=== PATIENT | female | born 1940 | race Caucasian/White ===

== ENCOUNTER 2016-10-21 12:53 | Outpatient (CLI) | payer MEDICARE, BC | END 2016-10-21 12:54 | disposition home or self-care (01) | DX: R53.83 Other fatigue (principal) ==

== ENCOUNTER 2016-10-21 13:24 | Outpatient (CLI) | payer MEDICARE, BC | END 2016-10-21 13:25 | disposition home or self-care (01) | DX: R06.02 Shortness of breath (principal); R53.83 Other fatigue ==

== ENCOUNTER 2016-11-01 14:22 | Outpatient (CLI) | payer MEDICARE, BC ==
[~2016-11-01 14:22] MED LIST: ALBUTEROL NEB 2.5 MG/3 ML INH ONE
== END 2016-11-01 14:23 | disposition home or self-care (01) ==
LOC: RT 14:22
PROVIDERS: ATTEND Physician Assistant Medical
DX: R06.02 Shortness of breath (principal)

== ENCOUNTER 2017-10-26 08:48 | Outpatient (CLI) | payer MEDICARE, BC ==
[2017-10-26] MEDS ORDERED: REGADENOSON 0.4 MG/5 ML SYRINGE IVP ONE ×2 (10:06→12:43)
[2017-10-26 12:26] VITALS: BP 158/72
--- NOTE | 2017-10-26 12:32 | CARDIAC PROCEDURE NOTE ---
DATE OF SERVICE: 10/26/2017 Provider: LISA Cosme PRIMARY CARE PHYSICIAN: Dr. Duffy PROCEDURE: Pharmacologic cardiac stress test. PROCEDURE DIAGNOSIS: Atypical chest pain and nonspecific ST and T-wave changes. CARDIAC RISK FACTORS: Include age and elevated blood pressure. PREVIOUS CARDIAC PROCEDURES: MPS. CLINICAL HISTORY: A 77-year-old female without known coronary artery disease. No current symptoms. INITIAL RESTING VITAL SIGNS: BP 158/72, heart rate 65, height 62 inches, weight 142 pounds, BMI 25.9. PROCEDURE AND FINDINGS: Patient identity and date verified. Consent signed. Pharmaceutical check. Pharmacologic stress testing was performed with Lexiscan at a dose of 0.4 mg over 10 seconds. The heart rate increased to 94 beats per minute from the infusion. Blood pressure response was normal during the stress procedure. The patient developed severe pain at the injection site with the injection and with saline. There was no sign of extravasation. The resting ECG demonstrated normal sinus rhythm with nonspecific ST changes and inverted T waves in leads II, III, aVF, V5, V6. Maximum ST segment depression with stress was more than 1 mm and downsloping. There was no ectopy. FINAL IMPRESSIONS 1. Good quality test. 2. Positive electrocardiogram for ischemia in the setting of vasodilator stress. 3. Nondiagnostic stress test for angina. 4. Await myocardial perfusion report. TD: 10/26/2017 11:42 MTDD
--- NOTE | 2017-10-27 08:13 | Nuclear Medicine Report ---
EXAM: SINGLE-ISOTOPE PHARMACOLOGICAL STRESS TEST WITH REGADENOSON. SINGLE-ISOTOPE AND ONE-DAY REST/STRESS M YOCARDIAL PERFUSION SCANS WITH TOMOGRAPHIC IMAGING, QUANTITATIVE ANALYSIS, WALL MOTION ANALYSIS AND C ALCULATION OF EJECTION FRACTION. EXAM DATE: 10/26/2017 12:45 PM. CLINICAL HISTORY: Chest pain. COMPARISON: None. TECHNIQUE: After the intravenous administration of 9.2 mCi of Tc-99m sestamibi, a rest myocardial perfusion scan was done with tomography. Motion correction was applied when appropriate. After an appropriate delay, pharmacological stress was performed with the infusion of 0.4 mg regadeno son per protocol. According to protocol, 40.8 mCi of Tc-99m sestamibi was injected for stress myocard ial perfusion scan. Motion correction was applied when appropriate. Gated tomographic images were obtained for wall motion analysis and computation of left ventricular e jection fraction. FINDINGS: Images show a small, mild defect in the distal anterior wall which appears relatively fixed between rest and stress images. No other convincing fixed or reversible perfusion defects. Wall motion analysis demonstrates no focal motion abnormality. The left ventricular end-diastolic volume is 56 cc. The left ventricular end-systolic volume is 14 cc . The left ventricular ejection fraction is calculated to be 75%. IMPRESSION: 1. Small, mild, fixed defect in the distal anterior wall. No other convincing fixed or reversible per fusion defects. 2. Left ventricular ejection fraction of 75%. 3. Normal segmental and global wall motion. 4. Normal left ventricular cavity size, no change with stress. [facility] Referring Provider Line: [phone] SITE ID: [id number]
== END 2017-10-26 08:49 | disposition home or self-care (01) ==
LOC: DI 08:48
PROVIDERS: ATTEND Family Medicine
DX: R07.89 Other chest pain (principal)
CPT/HCPCS: 78452; 93017; A9500; J2785; 93016; 93018

== ENCOUNTER 2018-03-13 08:46 | Outpatient (CLI) | payer MEDICARE, BC ==
--- NOTE | 2018-03-14 16:41 | Mammography Report ---
Reason: LT BREAST PAIN Procedure Date: 03/13/2018 Accession Number: [id number] / [id number] Procedure: PAULA - Diagnostic Dig Bilat CPT Code: FULL RESULT: EXAM: Diagnostic Dig Bilat DATE: 03/13/2018 10:00 AM CLINICAL HISTORY: 77-year-old female presents with left breast pain in the upper outer quadrant that has been present for 2 months. TECHNIQUE: Bilateral CC and MLO views were obtained. COMPARISON: 05/26/2016, 12/09/2009. FINDINGS: The breasts demonstrate heterogeneously dense fibroglandular parenchyma bilaterally. Coarse typically benign calcifications are seen bilaterally. No suspicious microcalcifications, asymmetries or masses are identified. IMPRESSION: Benign findings RECOMMENDATION: Recommend routine annual Screening mammography unless otherwise clinically indicated. BIRADS CATEGORY 2: Benign findings STANDARD QUALIFYING STATEMENTS: 1. This examination was not reviewed with the aid of Computer-Aided Detection (CAD). 2. A negative or benign imaging report should not delay biopsy if clinically suspicious findings are present. Consider surgical consultation if warrented. More than 5% of cancers are not identified by imaging. 3. Dense breasts may obscure an underlying neoplasm.
== END 2018-03-13 08:47 | disposition home or self-care (01) ==
LOC: DI 08:46
PROVIDERS: ATTEND Physician Assistant
DX: N64.4 Mastodynia (principal)
CPT/HCPCS: 77066

== ENCOUNTER 2018-10-01 08:22 | Outpatient (CLI) | payer MEDICARE, BC ==
[2018-10-01 14:24] LABS: BASOPHILS # (AUTO) 0.1 10^3/uL (0.0-0.1); BASOPHILS % (AUTO) 1.6 %; EOSINOPHILS # (AUTO) 0.3 10^3/uL (0.0-0.7); EOSINOPHILS % (AUTO) 6.1 %; HGB - HEMOGLOBIN 14.1 g/dL (12.0-16.0); LYMPHOCYTES # (AUTO) 1.3 10^3/uL (1.5-3.5); LYMPHOCYTES % (AUTO) 24.3 %; MEAN CORPUSCULAR HGB CONC 33.5 g/dL (32.0-36.0); MEAN CORPUSCULAR VOLUME 95.6 fL (81.0-99.0); MONOCYTES # (AUTO) 0.6 10^3/uL (0.0-1.0); MONOCYTES % (AUTO) 11.3 %; NEUTROPHILS % (AUTO) 56.7 %; PLT - PLATELET COUNT 281 10^3/uL (130-450); RED CELL DISTRIBUTION WIDTH 13.1 % (12.0-15.0); WHITE BLOOD COUNT 5.3 x10^3/uL (4.8-10.8)
[2018-10-01 14:57] LABS: ALBUMIN 4.1 g/dL (3.2-5.5); ALBUMIN/GLOBULIN RATIO 1.3 (1.0-2.2); ALKALINE PHOSPHATASE 63 IU/L (42-121); ALT ALANINE AMINOTRANSFERASE 17 IU/L (10-60); AST ASPARTATE AMINOTRANSFERASE 21 IU/L (10-42); BILIRUBIN,TOTAL 0.7 mg/dL (0.2-1.0); BUN - BLOOD UREA NITROGEN 15 mg/dL (6-20); CALCIUM 9.1 mg/dL (8.5-10.3); CARBON DIOXIDE - CO2 29 mmol/L (21-32); CHLORIDE 104 mmol/L (101-111); CHOLESTEROL 219 mg/dL; CREATININE 0.6 mg/dL (0.4-1.0); GFR - MDRD 97 (>89); GLUCOSE 86 mg/dL (70-100); HDL CHOLESTEROL 72 mg/dL; LDL CHOLESTEROL,CALCULATED 133 mg/dL; LDL/HDL RATIO 1.8 (<4.4); SODIUM 139 mmol/L (135-145); TOTAL PROTEIN 7.2 g/dL (6.7-8.2); VLDL CHOLESTEROL 14 mg/dL
== END 2018-10-01 08:23 | disposition home or self-care (01) ==
LOC: LAB.WCP 08:22
PROVIDERS: ATTEND Physician Assistant
DX: Z00.00 Encounter for general adult medical examination without abnormal findings (principal); R07.89 Other chest pain; R53.83 Other fatigue
CPT/HCPCS: 36415; 80053; 80061; 83721; 84443; 85025

== ENCOUNTER 2019-01-22 09:01 | Outpatient (CLI) | payer MEDICARE, BC ==
--- NOTE | 2019-01-23 16:37 | Ultrasound Report ---
Reason: DIZZINESS/VERTIGO Procedure Date: 01/22/2019 Accession Number: [id number] / [id number] Procedure: US - Carotid Doppler Complete CPT Code: FULL RESULT: EXAM: BILATERAL CAROTID AND VERTEBRAL ARTERY DUPLEX DOPPLER ULTRASOUND: EXAM DATE: 01/22/2019 09:55 AM CLINICAL HISTORY: Dizziness. Vertigo. COMPARISON: None. TECHNIQUE: Grayscale imaging, color Doppler, and duplex spectral Doppler were used to evaluate the carotid and vertebral arteries bilaterally. Static images were obtained. FINDINGS: Small amount of plaque is identified in carotid arteries bilaterally. Normal antegrade flow is present in bilateral vertebral arteries. Incidental 2.0 x 1.0 x 1.2 cm left thyroid nodule with vascularity noted. VELOCITIES (cm/sec): RIGHT: CCA mid: PSV 96 cm/sec CCA dist: PSV 78 cm/sec ICA prox: PSV 94 cm/sec, EDV 23 cm/sec ICA mid: PSV 86 cm/sec, EDV 23 cm/sec ICA dist: PSV 77 cm/sec, EDV 21 cm/sec ECA: PSV 116 cm/sec Vert: PSV 58 cm/sec ICA/CCA: 0.97 LEFT: CCA mid: PSV 91 cm/sec CCA dist: PSV 70 cm/sec ICA prox: PSV 71 cm/sec, EDV 15 cm/sec ICA mid: PSV 78 cm/sec, EDV 22 cm/sec ICA dist: PSV 72 cm/sec, EDV 4 cm/sec ECA: PSV 95 cm/sec Vert: PSV 73 cm/sec ICA/CCA: 0.82 ICA diameter stenosis: Right: <50% by velocity and <70% by NASCET criteria. Left: <50% by velocity and <70% by NASCET criteria. IMPRESSION: 1. Mild bilateral carotid artery plaquing. 2. In the right carotid artery there are no elevated carotid artery velocities to suggest hemodynamically significant stenosis. 3. In the left carotid artery there are no elevated carotid artery velocities to suggest hemodynamically significant stenosis. 4. Normal antegrade flow is present in bilateral vertebral arteries. 5. Left thyroid nodule. Consider FNA due to 2 cm size criteria. General Recommendations: Stenosis =50% ICA - Follow-up ultrasound 6-12 months Stenosis <50% ICA - High Risk Patient with plaque - Follow-up ultrasound 1-2 years Normal Study but High Risk Patient - Follow-up ultrasound 3-5 years Management recommendations and diagnostic criteria are based on current IAC endorsed standards in Carotid Artery Stenosis: Grayscale and Doppler Ultrasound Diagnosis. Validated velocity measurements with angiographic measurements and velocity criteria are extrapolated from diameter data as defined by the Society of Radiologists in Ultrasound Consensus Conference Radiology 2003; 229;340-346. [facility]
== END 2019-01-22 09:02 | disposition home or self-care (01) ==
LOC: DI 09:01
PROVIDERS: ATTEND Family Medicine
DX: R42 Dizziness and giddiness (principal); E04.1 Nontoxic single thyroid nodule
CPT/HCPCS: 93880

== ENCOUNTER 2019-01-25 11:09 | Outpatient (CLI) | payer MEDICARE, BC ==
--- NOTE | 2019-01-27 23:13 | CT Report ---
Reason: DIZZINESS/VERTIGO Procedure Date: 01/25/2019 Accession Number: [id number] / [id number] Procedure: CT - HEAD WO CPT Code: FULL RESULT: EXAM: CT HEAD EXAM DATE: 01/25/2019 11:24 AM. CLINICAL HISTORY: DIZZINESS/VERTIGO. COMPARISON: None. TECHNIQUE: Multiaxial CT images were obtained from the foramen magnum to the vertex. Reformats: Sagittal and coronal. IV contrast: None. In accordance with CT protocol optimization, one or more of the following dose reduction techniques were utilized for this exam: automated exposure control, adjustment of mA and/or KV based on patient size, or use of iterative reconstructive technique. FINDINGS: PARENCHYMA: No acute hemorrhage, transcortical infarction or mass. Periventricular and white matter hypointensities are nonspecific but most consistent with chronic microvascular ischemic changes. EXTRA-AXIAL SPACES: No extra-axial fluid collections. No midline shift. VENTRICLES/SULCI: Enlargement of the lateral and third ventricles with prominence of the cortical sulci consistent with age-appropriate cerebral volume loss. VASCULAR STRUCTURES: Arterial calcifications consistent with atherosclerosis. SINUSES: The visible paranasal sinuses and mastoid air cells are unremarkable. ORBITS: Status post bilateral cataract surgery. BONES: No displaced acute calvarial fracture. OTHER: None. IMPRESSION: 1. No acute intracranial findings. 2. Cerebral atrophy and chronic microvascular ischemic changes. [facility]
== END 2019-01-25 11:10 | disposition home or self-care (01) ==
LOC: DI 11:09
PROVIDERS: ATTEND Family Medicine
DX: R42 Dizziness and giddiness (principal); G31.9 Degenerative disease of nervous system, unspecified
CPT/HCPCS: 70450

== ENCOUNTER 2019-02-05 13:26 | Outpatient (CLI) | payer MEDICARE, BC ==
--- NOTE | 2019-02-06 04:41 | XRAY Report ---
Reason: LEFT 5TH FINGER PAIN Procedure Date: 02/05/2019 Accession Number: [id number] / [id number] Procedure: WCP - Finger(s) LT CPT Code: FULL RESULT: EXAM: LEFT FIFTH DIGIT RADIOGRAPHY EXAM DATE: 02/05/2019 01:26 PM. CLINICAL HISTORY: LEFT 5TH FINGER PAIN. COMPARISON: None. TECHNIQUE: 3 views. FINDINGS: Bones: Osteopenia. Mild deformity at the base of the proximal phalanx consistent with fracture of uncertain age. No other acute fracture seen. Joints: No dislocation seen. Degenerative joint disease in the interphalangeal joints. Soft Tissues: Soft tissue swelling. IMPRESSION: 1. Fracture of uncertain age at the base of the proximal phalanx. 2. Osteopenia and degenerative changes. [facility]
== END 2019-02-05 23:59 | disposition home or self-care (01) ==
LOC: DI.WCP 13:26
PROVIDERS: ATTEND Physician Assistant
DX: S62.617A Displaced fracture of proximal phalanx of left little finger, initial encounter for closed fracture (principal); M85.842 Other specified disorders of bone density and structure, left hand; M19.042 Primary osteoarthritis, left hand
CPT/HCPCS: 73140

== ENCOUNTER 2019-02-15 13:01 | Outpatient (CLI) | payer MEDICARE, BC ==
--- NOTE | 2019-02-18 09:34 | Ultrasound Report ---
Reason: THYROID NODULE, LEFT Procedure Date: 02/15/2019 Accession Number: [id number] / [id number] Procedure: US - Head or Neck Soft Tissue CPT Code: FULL RESULT: EXAM: THYROID ULTRASOUND EXAM DATE: 02/15/2019 01:59 PM. CLINICAL HISTORY: THYROID NODULE, LEFT seen on carotid ultrasound. For follow-up. COMPARISON: CAROTID DOPPLER COMPLETE 01/22/2019 9:09 AM. TECHNIQUE: Real time sonographic imaging of the thyroid was performed by the barn hand. Multiple pharmaceutical specialty representative static images were saved for review. FINDINGS: THYROID GLAND: Right Lobe: 4.4 x 1 x 1.3 cm, volume 2.7 cc. Normal background echotexture. Right Lobe Nodules: Superior pole 0.4 cm nodule with hypoechoic periphery and isoechoic center with peripheral vascularity. Superior medial hypoechoic 0.4 cm well-circumscribed nodule with peripheral vascularity. Left Lobe: 4.1 x 1.7 1.8 cm, volume 5.5 cc. Normal background echotexture. Left Lobe Nodules: 0.5 cm superior pole isoechoic nodule with vascularity. 2.1 x 1.2 x 1.4 cm heterogeneous vascular mid to lower pole nodule. Isthmus: 0.3 cm AP. Isthmic Nodules: None. LYMPH NODES: No pathologic adenopathy demonstrated in the central or lateral compartment. Right level 5 lymph node and left level 3 lymph nodes, maximum dimension 0.8 cm. OTHER: None. IMPRESSION: Dominant mid to left lower pole 2.1 x 1.2 x 1.4 cm heterogeneous vascular nodule for which FNA is suggested based on size criteria. Management recommendations are based on 2015 [place] [employer] Management Guidelines for Adult Patients with Thyroid Nodules and Differentiated Thyroid Cancer. [facility]
== END 2019-02-15 13:02 | disposition home or self-care (01) ==
LOC: DI 13:01
PROVIDERS: ATTEND Physician Assistant
DX: E04.2 Nontoxic multinodular goiter (principal)
CPT/HCPCS: 76536

== ENCOUNTER 2019-03-04 08:21 | Outpatient (CLI) | payer MEDICARE, BC ==
[2019-03-04] MEDS ORDERED: BUFFERED LIDOCAINE 10 ML SYRINGE ONE (08:23)
--- NOTE | 2019-03-04 15:01 | Ultrasound Report ---
Reason: LT THYROID NODULE Procedure Date: 03/04/2019 Accession Number: [id number] / [id number] Procedure: US - FNA Bx w/US Gnd les CPT Code: 64928 FULL RESULT: EXAM: THYROID FINE NEEDLE ASPIRATION EXAM DATE: 03/04/2019 09:45 AM. CLINICAL HISTORY: Left thyroid nodule. COMPARISON: None. TECHNIQUE: The risks, benefits, and alternatives of the procedure were discussed with the patient. All questions were answered. Written and verbal consent were obtained. A site was marked over the supine in question under live sonographic evaluation, then subsequently prepped and draped in a sterile manner. Local anesthesia was performed with 1% lidocaine. A total of 4 22 gauge fine-needle aspirates/passes were performed through the left lower pole dominant thyroid nodule in question, then passed to the director of pediatric rehabilitation for preparation. Estimated blood loss was 0 mL. Sonographic images demonstrate needle placement within the left lower pole dominant thyroid nodule in question. FINDINGS IMPRESSION: Left lower pole thyroid nodule FNA. [facility]
[2019-03-04] MEDS ORDERED: BUFFERED LIDOCAINE 10 ML SYRINGE IU ONE (15:52)
== END 2019-03-04 08:22 | disposition home or self-care (01) ==
LOC: DI 08:21
PROVIDERS: ATTEND Physician Assistant
DX: E04.1 Nontoxic single thyroid nodule (principal)
CPT/HCPCS: 10005

== ENCOUNTER 2019-07-29 12:32 | Outpatient (CLI) | payer MEDICARE, BC | END 2019-07-29 12:33 | disposition critical access hospital (66) | LOC: EMS 12:32 | PROVIDERS: ATTEND Surgery | DX: R07.9 Chest pain, unspecified (principal); R42 Dizziness and giddiness | CPT/HCPCS: A0425; A0427 ==

== ENCOUNTER 2019-07-29 12:49 | Emergency (ER) | payer MEDICARE, BC ==
--- NOTE | 2019-07-29 13:32 | XRAY Report ---
Reason: Chest Pain Procedure Date: 07/29/2019 Accession Number: [id number] / [id number] Procedure: XR - Chest 1 View X-Ray CPT Code: 51601 Final Report FULL RESULT: EXAM: CHEST RADIOGRAPHY EXAM DATE: 07/29/2019 01:19 PM. CLINICAL HISTORY: Chest pain. COMPARISON: Chest radiograph from 10/21/2016. TECHNIQUE: 1 view. FINDINGS: Lungs/Pleura: Mild diffuse interstitial prominence present. No pleural effusion or pneumothorax. Mediastinum: Cardiomediastinal silhouette is within normal limits. Pulmonary vasculature is mildly engorged. Other: There are partially visualized changes from left shoulder arthroplasty. IMPRESSION: Findings suggesting borderline CHF/fluid overload, new from the prior examination. [facility]
[2019-07-29 14:16] LABS: BASOPHILS # (AUTO) 0.1 10^3/uL (0.0-0.1); BASOPHILS % (AUTO) 0.9 %; EOSINOPHILS # (AUTO) 0.2 10^3/uL (0.0-0.7); EOSINOPHILS % (AUTO) 2.3 %; HGB - HEMOGLOBIN 13.3 g/dL (12.0-16.0); LYMPHOCYTES # (AUTO) 1.4 10^3/uL (1.5-3.5); LYMPHOCYTES % (AUTO) 20.2 %; MEAN CORPUSCULAR HEMOGLOBIN 31.6 pg (27.0-31.0); MEAN CORPUSCULAR HGB CONC 33.1 g/dL (32.0-36.0); MEAN CORPUSCULAR VOLUME 95.5 fL (81.0-99.0); MEAN PLATELET VOLUME 9.2 fL (7.9-10.8); MONOCYTES # (AUTO) 0.6 10^3/uL (0.0-1.0); MONOCYTES % (AUTO) 8.4 %; NEUTROPHILS # (AUTO) 4.7 10^3/uL (1.5-6.6); NEUTROPHILS % (AUTO) 67.8 %; PLT - PLATELET COUNT 244 10^3/uL (130-450); RED BLOOD COUNT 4.21 10^6/uL (4.20-5.40); RED CELL DISTRIBUTION WIDTH 13.7 % (12.0-15.0)
--- NOTE | 2019-07-29 14:26 | ED Physician Documentation ---
PD HPI CHEST PAIN - Stated complaint Stated Complaint: CP - Chief complaint Chief Complaint: Cardiac - History obtained from History obtained from: Patient - History of Present Illness Timing - onset: Today Timing - onset during: Rest Timing - duration: Minutes (1-2) Timing - details: Abrupt onset, Now resolved Pain level max: 8 Pain level now: 0 Quality: Tightness, Sharp Location: Substernal Radiation: No: Jaw, Neck, Back, Abdominal, Left upper extremity, Right upper extremity Improved by: Nothing Worsened by: Other (Nothing) Recently seen: Clinic - Additional information Additional information: 79-year-old female presents to the emergency department stating that she had all over body pain today. She states that this is not unusual for her. She states that she had chest pain along with the all over body pain. It lasted for a few minutes and is now resolved. Has had cardiac stents in the past. Does not feel similar to her prior ACS. She states that she lost her 2 years ago. Nothing made it better or worse. Symptoms are now resolved. She saw her doctor today who sent her here. Review of Systems Ten Systems: 10 systems reviewed and negative Constitutional: denies: Fever, Chills Ears: denies: Ear pain Nose: denies: Rhinorrhea / runny nose, Congestion Throat: denies: Sore throat Cardiac: denies: Palpitations Respiratory: denies: Cough GI: denies: Abdominal Pain, Vomiting, Diarrhea Skin: denies: Rash Musculoskeletal: denies: Neck pain, Back pain Neurologic: denies: Headache PD PAST MEDICAL HISTORY - Past Medical History Past Medical History: Yes Respiratory: COPD GI: GERD Musculoskeletal: Osteopenia - Past Surgical History General: Cholecystectomy Ortho: Hip replacement, 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 - Allergies Allergies/Adverse Reactions: Allergies Allergy/AdvReac Type Severity Reaction Status Date / Time No Known Drug Allergies Allergy Verified 07/29/19 12:53 - Social History Does the pt smoke?: No Smoking Status: Never smoker PD ED PE NORMAL - Vitals Vital signs reviewed: Yes - General General: Alert and oriented X 3, No acute distress, Well developed/nourished - HEENT HEENT: PERRL, Moist mucous membranes - Neck Neck: Supple, no meningeal sign - Cardiac Cardiac: RRR, Strong equal pulses - Respiratory Respiratory: No respiratory distress, Clear bilaterally - Abdomen Abdomen: Soft, Non tender, Non distended - Derm Derm: Warm and dry, No rash - Extremities Extremities: No edema - Neuro Neuro: Alert and oriented X 3, No motor deficit, No sensory deficit - Psych Psych: Normal mood, Normal affect Results - Vitals Vitals: Vital Signs - 24 hr 07/29/19 07/29/19 07/29/19 12:53 15:39 15:44 Temperature 36.5 C Heart Rate 65 58 L 62 Respiratory 16 20 14 Rate Blood Pressure 178/77 H 168/72 H 130/60 O2 Saturation 100 97 130 H Oxygen O2 Source Room air - EKG (time done) 1304 Rate: Rate (enter#) (68) Rhythm: NSR [place]: Normal Intervals: Normal [place] QRS: Normal Ischemia: Normal ST segments - Labs Labs: Laboratory Tests 07/29/19 07/29/19 07/29/19 14:09 14:09 14:09 WBC 7.0 RBC 4.21 Hgb 13.3 Hct 40.2 MCV 95.5 MCH 31.6 H MCHC 33.1 RDW 13.7 Plt Count 244 MPV 9.2 Neut # (Auto) 4.7 Lymph # (Auto) 1.4 L [place] # (Auto) 0.6 Eos # (Auto) 0.2 Baso # (Auto) 0.1 Absolute Nucleated RBC 0.00 Nucleated RBC % 0.0 Sodium 139 Potassium 3.6 Chloride 105 Carbon Dioxide 25 Anion Gap 9.0 BUN 17 Creatinine 0.7 Estimated GFR (MDRD) 81 L Glucose 94 Calcium 9.1 Total Bilirubin 0.7 AST 19 ALT 15 Alkaline Phosphatase 50 Troponin I High Sens 3.7 B-Natriuretic Peptide Total Protein 7.2 Albumin 4.2 Globulin 3.0 Albumin/Globulin Ratio 1.4 Lipase 28 07/29/19 07/29/19 14:09 16:14 WBC RBC Hgb Hct MCV MCH MCHC RDW Plt Count MPV Neut # (Auto) Lymph # (Auto) [place] # (Auto) Eos # (Auto) Baso # (Auto) Absolute Nucleated RBC Nucleated RBC % Sodium Potassium Chloride Carbon Dioxide Anion Gap BUN Creatinine Estimated GFR (MDRD) Glucose Calcium Total Bilirubin AST ALT Alkaline Phosphatase Troponin I High Sens 4.5 B-Natriuretic Peptide 34 Total Protein Albumin Globulin Albumin/Globulin Ratio Lipase - Rads (name of study) cxr Radiology: Prelim report reviewed, EMP read contemporaneously, See rad report (Findings suggesting borderline CHF/fluid overload, new from the prior exam) PD MEDICAL DECISION MAKING - ED course Complexity details: reviewed results, re-evaluated patient, considered differential, d/w patient, d/w family ED course: 79-year-old female presents to the emergency department all over body pain today. No significant lab abnormalities. Negative high-sensitivity troponin x2. BNP is normal. No hypoxia. No recurrence of symptoms. Unclear etiology. We will have her follow-up with her doctor for further care. Patient counseled regarding signs and symptoms for which I believe and urgent re-evaluation would be necessary. Patient with good understanding of and agreement to plan and is comfortable going home at this time This document was made in part using voice recognition software. While efforts are made to proofread this document, sound alike and grammatical errors may occur. Departure - Departure Disposition: 01 Home, Self Care Clinical Impression: Chest pain Qualifiers: Chest pain type: unspecified Qualified Code(s): R07.9 - Chest pain, unspecified Condition: Good Instructions: ED Chest Pain Atypical Unkn Cause Follow-Up: Bing Vazquez PA [Primary Care Provider] - Within 3 Days Comments: Your labs and x-ray do not show any acute abnormality today. Return if you worsen. Follow-up with your doctor for further care.
[2019-07-29 14:30] LABS: ALBUMIN 4.2 g/dL (3.2-5.5); ALBUMIN/GLOBULIN RATIO 1.4 (1.0-2.2); BILIRUBIN,TOTAL 0.7 mg/dL (0.2-1.0); CREATININE 0.7 mg/dL (0.4-1.0); TOTAL PROTEIN 7.2 g/dL (6.7-8.2)
[2019-07-29 14:55] LABS: CALCIUM 9.1 mg/dL (8.5-10.3)
[2019-07-29] MEDS ORDERED: diltiaZEM INJ 5 MG/ML VIAL IVP STA (15:04)
[2019-07-29 16:53] VITALS: BP 136/72
== END 2019-07-29 16:53 | disposition home or self-care (01) ==
LOC: EDUNIT# → ED 12:49
DX: R07.9 Chest pain, unspecified (principal)
CPT/HCPCS: 36415; 71045; 80053; 83690; 83880; 84484; 85025; 93005; 96374; 99284

== ENCOUNTER 2019-08-29 07:45 | Outpatient (CLI) | payer MEDICARE, BC ==
--- NOTE | 2019-08-29 10:24 | CARDIAC PROCEDURE NOTE ---
DATE OF SERVICE: 08/29/2019 Physician: Aicha Aguirre MD, [facility] INDICATION: Chest pain/atypical chest pain. CARDIAC RISK FACTORS 1. Advanced age. 2. Possibly untreated hypertension. 3. Remote ex-smoker. 4. Postmenopausal status. DESCRIPTION OF PROCEDURE: After signing informed consent, the patient underwent a Herman-protocol treadmill stress test with Echo imaging pre- and post-exercise. RESTING HEART RATE: 64. PEAK HEART RATE: 119 (85% predicted maximum heart rate for age). RESTING BLOOD PRESSURE: 155/75. PEAK BLOOD PRESSURE: 211/74. Patient exercised for 3 minutes and 3 seconds on a Herman-protocol treadmill stress test. She achieved a peak heart rate of 119 (85% PMHR) and 4.7 METS. The patient developed shortness of breath after 2 minutes of walking and requested to stop exercise at 3 minutes because of shortness of breath. She dropped her oxygen saturation from 95%, at rest on room air, to 89% at peak exercise on room air. She reported her perceived exertion at 13/20 on the Julienne scale. The patient reported no chest pain. RESTING EKG: Normal sinus rhythm, LVH with strain (downsloping ST segments with T-wave inversions in leads II, III, aVF, and V4 through V6). EKG AT PEAK: New horizontal ST depressions in leads V3 through V6, other changes are unchanged, except possible prolonged QT develops. SUMMARY 1. Abnormal resting EKG. 2. ST-segment depressions consistent with ischemia develop after treadmill exercise stress. 3. Uncontrolled blood pressure at rest, and excessive blood pressure at peak. 4. Oxygen saturation dropped to 89% at peak, and there was audible wheezing across the room as the patient recovered, this lasted for 2 minutes, then oxygen saturation recovered to 95% in 2 minutes. 5. This patient's cardiac risk based on all the above: Moderate-Severe. 6. Echo images reported separately. cc: Bing Vazquez PA-C TD: 08/29/2019 10:15 MTDD
== END 2019-08-29 07:46 | disposition home or self-care (01) ==
LOC: DI 07:45
PROVIDERS: ATTEND Physician Assistant
DX: R07.89 Other chest pain (principal); R94.31 Abnormal electrocardiogram [ECG] [EKG]; Z87.891 Personal history of nicotine dependence; Z78.0 Asymptomatic menopausal state
CPT/HCPCS: 93350

== ENCOUNTER 2020-01-18 08:25 | Emergency (ER) | payer MEDICARE, BC ==
[2020-01-18 08:58] LABS: BASOPHILS # (AUTO) 0.1 10^3/uL (0.0-0.1); BASOPHILS % (AUTO) 0.8 %; EOSINOPHILS # (AUTO) 0.3 10^3/uL (0.0-0.7); EOSINOPHILS % (AUTO) 4.6 %; LYMPHOCYTES # (AUTO) 1.4 10^3/uL (1.5-3.5); LYMPHOCYTES % (AUTO) 21.5 %; MEAN CORPUSCULAR HGB CONC 33.6 g/dL (32.0-36.0); MEAN CORPUSCULAR VOLUME 95.4 fL (81.0-99.0); MEAN PLATELET VOLUME 9.2 fL (7.9-10.8); MONOCYTES # (AUTO) 0.7 10^3/uL (0.0-1.0); MONOCYTES % (AUTO) 10.3 %; NEUTROPHILS % (AUTO) 62.5 %; PLT - PLATELET COUNT 266 10^3/uL (130-450); RED BLOOD COUNT 4.37 10^6/uL (4.20-5.40); RED CELL DISTRIBUTION WIDTH 13.3 % (12.0-15.0); WHITE BLOOD COUNT 6.3 x10^3/uL (4.8-10.8)
[2020-01-18 09:12] LABS: ALBUMIN 4.5 g/dL (3.2-5.5); ALBUMIN/GLOBULIN RATIO 1.5 (1.0-2.2); BILIRUBIN,TOTAL 0.6 mg/dL (0.2-1.0); CALCIUM 9.3 mg/dL (8.5-10.3); CREATININE 0.8 mg/dL (0.4-1.0); TOTAL PROTEIN 7.5 g/dL (6.7-8.2)
--- NOTE | 2020-01-18 09:15 | ED Physician Documentation ---
PD HPI CHEST PAIN - Stated complaint Stated Complaint: CHEST PX - Chief complaint Chief Complaint: Cardiac - History obtained from History obtained from: Patient - History of Present Illness Timing - onset: How many hours ago (8), Today Timing - duration: Hours (8) Timing - details: Other (She states that awoke her from sleep) Pain level max: 7 Pain level now: 1 Quality: Tightness, Other (Burning) Location: Substernal Radiation: Left upper extremity Improved by: Nothing Worsened by: Movement. No: Exertion, Inspiration, Eating, Palpation, Position Associated symptoms: Other (Anxious). No: Shortness of air, Diaphoresis, Nausea, Vomiting, Feeling faint / dizzy, General Weakness, Palpitations, Cough Similar symptoms before: Diagnosis (Chest pain, unknown cause) - Additional information Additional information: 79-year-old female presents to the emergency department stating that she awoke from sleep at approximately 1:30 in the morning with burning left-sided chest pain. She states that it radiated to the left arm. She states it has been constant since that time. It is finally starting to get better she states. She does not have any cardiac history. She states she had a normal cardiac stress test several years ago. No recent surgery. No recent travel. No recent fever. No cough. Worse with movement. No pleuritic chest pain. No calf swelling. Took aspirin prior to arrival. Patient states that she does have a history of GERD Review of Systems Ten Systems: 10 systems reviewed and negative Constitutional: denies: Fever, Chills, Myalgias Nose: denies: Rhinorrhea / runny nose, Congestion Throat: denies: Sore throat Cardiac: denies: Palpitations Respiratory: denies: Dyspnea, Cough, Hemoptysis, Wheezing GI: denies: Abdominal Pain, Nausea, Vomiting, Diarrhea Skin: denies: Rash Musculoskeletal: denies: Neck pain, Back pain Neurologic: denies: Headache PD PAST MEDICAL HISTORY - Past Medical History Past Medical History: Yes Cardiovascular: None Respiratory: COPD Neuro: None Endocrine/Autoimmune: None GI: GERD 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 : None HEENT: None Psych: None Musculoskeletal: Osteopenia Derm: None - Past Surgical History Past Surgical History: No General: Cholecystectomy Ortho: Hip replacement, 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 - Allergies Allergies/Adverse Reactions: Allergies Allergy/AdvReac Type Severity Reaction Status Date / Time No Known Drug Allergies Allergy Verified 07/29/19 12:53 - Social History Does the pt smoke?: No Smoking Status: Never smoker Does the pt have substance abuse?: No - Immunizations Immunizations are current?: Yes - POLST Patient has POLST: No Results - Vitals Vitals: Vital Signs - 24 hr 01/18/20 01/18/20 01/18/20 08:35 11:11 11:36 Temperature 36.5 C 36.6 C Heart Rate 59 L 60 76 Respiratory 24 13 18 Rate Blood Pressure 149/76 H 147/63 H 138/77 H O2 Saturation 99 96 97 Oxygen O2 Source Room air - EKG (time done) 0835 Rate: Rate (enter#) (55) Rhythm: NSR [place]: Normal Intervals: Normal [place] QRS: Normal Ischemia: T wave inversion (v5-6) Compare to prior EKG: Unchanged from prior EKG (07/29/19) - Labs Labs: Laboratory Tests 01/18/20 01/18/20 01/18/20 08:40 08:40 08:40 WBC 6.3 RBC 4.37 Hgb 14.0 Hct 41.7 MCV 95.4 MCH 32.0 H MCHC 33.6 RDW 13.3 Plt Count 266 MPV 9.2 Neut # (Auto) 4.0 Lymph # (Auto) 1.4 L [place] # (Auto) 0.7 Eos # (Auto) 0.3 Baso # (Auto) 0.1 Absolute Nucleated RBC 0.00 Nucleated RBC % 0.0 Sodium 139 Potassium 3.7 Chloride 100 L Carbon Dioxide 25 Anion Gap 14.0 H BUN 15 Creatinine 0.8 Estimated GFR (MDRD) 69 L Glucose 97 Calcium 9.3 Total Bilirubin 0.6 AST 20 ALT 16 Alkaline Phosphatase 66 Troponin I High Sens 3.9 Total Protein 7.5 Albumin 4.5 Globulin 3.0 Albumin/Globulin Ratio 1.5 Lipase 29 01/18/20 10:44 WBC RBC Hgb Hct MCV MCH MCHC RDW Plt Count MPV Neut # (Auto) Lymph # (Auto) [place] # (Auto) Eos # (Auto) Baso # (Auto) Absolute Nucleated RBC Nucleated RBC % Sodium Potassium Chloride Carbon Dioxide Anion Gap BUN Creatinine Estimated GFR (MDRD) Glucose Calcium Total Bilirubin AST ALT Alkaline Phosphatase Troponin I High Sens 3.4 Total Protein Albumin Globulin Albumin/Globulin Ratio Lipase - Rads (name of study) cxr Radiology: Prelim report reviewed, EMP read contemporaneously, See rad report (No acute abnormality) PD MEDICAL DECISION MAKING - ED course Complexity details: reviewed results, re-evaluated patient, considered differential (No ST elevation DC, no aortic dissection, no PE, no tension pneumothorax, no aortic aneurysm), d/w patient ED course: 79-year-old female with chest pain for approximately 8 hours today. Resolved upon arrival to the emergency department. Negative high-sensitivity troponin x2. No acute findings on EKG, chest x-ray or other blood work. Asymptomatic currently. We will have her follow-up with her doctor for further care. Not exertional. Does not appear consistent with unstable angina. Patient counseled regarding signs and symptoms for which I believe and urgent re-evaluation would be necessary. Patient with good understanding of and agreement to plan and is comfortable going home at this time This document was made in part using voice recognition software. While efforts are made to proofread this document, sound alike and grammatical errors may occur. Patient had a stress echo in August 2019. Did not show any ischemia on the echocardiogram at that time. Departure - Departure Disposition: Home, Self Care Clinical Impression: Chest pain Qualifiers: Chest pain type: unspecified Qualified Code(s): R07.9 - Chest pain, unspecified Condition: Good Instructions: ED Chest Pain Atypical Unkn Cause, ED Heart Disease Risk Factors Follow-Up: Bing Vazquez PA [Primary Care Provider] - Within 1 week Comments: Follow-up with your doctor for further care. Your testing is normal today and does not show any evidence of a heart attack within the past 24 hours. Return if you worsen Discharge Date/Time: 01/18/20 11:41
[2020-01-18] MEDS ORDERED: LORazepam 0.5 MG TABLET PO STA (09:23)
--- NOTE | 2020-01-18 09:28 | XRAY Report ---
PROCEDURE: Chest 1 View X-Ray INDICATIONS: Chest Pain TECHNIQUE: One view of the chest was acquired. COMPARISON: 07/29/2019 FINDINGS: Surgical changes and devices: Left shoulder replacement.. Lungs and pleura: No pleural effusions or pneumothorax. Lungs are mildly hyperinflated with slight coarsening of the interstitium, improved compared to the prior study.. Mediastinum: Mediastinal contours appear normal. Heart size is at the upper limits of normal. Bones and chest wall: No suspicious bony lesions. Overlying soft tissues appear unremarkable. IMPRESSION: 1. No central venous congestion. 2. Improved coarsening of the interstitial markings compared to the prior study. This may indicate le ss interstitial edema than present previously 3. No acute consolidation. Reviewed by: Modesta Rodriguez MD on 01/18/2020 8:26 AM ESTEVAN Approved by: Modesta Rodriguez MD on 01/18/2020 8:26 AM ESTEVAN Station ID: [id number]
[2020-01-18 11:41] VITALS: BP 138/77
--- NOTE | 2020-02-27 16:29 | ED Physician Documentation ---
PD ED PE NORMAL - Vitals Vital signs reviewed: Yes - General General: Alert and oriented X 3, No acute distress, Well developed/nourished - HEENT HEENT: Moist mucous membranes - Neck Neck: Supple, no meningeal sign - Cardiac Cardiac: RRR, No murmur, Strong equal pulses - Respiratory Respiratory: No respiratory distress, Clear bilaterally - Abdomen Abdomen: Soft, Non tender, Non distended - Derm Derm: Warm and dry - Extremities Extremities: No edema, No calf tenderness / cord - Neuro Neuro: Alert and oriented X 3 - Psych Psych: Normal mood, Normal affect - Free text exam Free text exam: physical exam from visit 01/30/20
== END 2020-01-18 11:41 | disposition home or self-care (01) ==
LOC: ED 08:25
DX: R07.89 Other chest pain (principal); K21.9 Gastro-esophageal reflux disease without esophagitis
CPT/HCPCS: 36415; 71045; 80053; 83690; 84484; 85025; 93005; 99284

== ENCOUNTER 2020-02-03 08:00 | Outpatient (CLI) | payer MEDICARE, BC ==
[2020-02-03 11:47] LABS: BASOPHILS # (AUTO) 0.1 10^3/uL (0.0-0.1); BASOPHILS % (AUTO) 1.2 %; EOSINOPHILS # (AUTO) 0.3 10^3/uL (0.0-0.7); EOSINOPHILS % (AUTO) 5.8 %; HGB - HEMOGLOBIN 13.3 g/dL (12.0-16.0); LYMPHOCYTES # (AUTO) 1.4 10^3/uL (1.5-3.5); LYMPHOCYTES % (AUTO) 27.4 %; MEAN CORPUSCULAR HEMOGLOBIN 30.7 pg (27.0-31.0); MEAN CORPUSCULAR VOLUME 96.1 fL (81.0-99.0); MEAN PLATELET VOLUME 9.5 fL (7.9-10.8); MONOCYTES # (AUTO) 0.6 10^3/uL (0.0-1.0); NEUTROPHILS # (AUTO) 2.8 10^3/uL (1.5-6.6); NEUTROPHILS % (AUTO) 54.2 %; PLT - PLATELET COUNT 261 10^3/uL (130-450); RED BLOOD COUNT 4.33 10^6/uL (4.20-5.40); RED CELL DISTRIBUTION WIDTH 13.7 % (12.0-15.0); WHITE BLOOD COUNT 5.2 x10^3/uL (4.8-10.8)
[2020-02-03 12:10] LABS: ALBUMIN 4.2 g/dL (3.2-5.5); ALBUMIN/GLOBULIN RATIO 1.4 (1.0-2.2); BILIRUBIN,TOTAL 0.9 mg/dL (0.2-1.0); CALCIUM 9.2 mg/dL (8.5-10.3); CREATININE 0.7 mg/dL (0.4-1.0); TOTAL PROTEIN 7.1 g/dL (6.7-8.2)
== END 2020-02-03 23:59 | disposition home or self-care (01) ==
LOC: LAB.WCP 08:00
PROVIDERS: ATTEND Physician Assistant
DX: J44.9 Chronic obstructive pulmonary disease, unspecified (principal); R00.2 Palpitations; I49.9 Cardiac arrhythmia, unspecified; R94.31 Abnormal electrocardiogram [ECG] [EKG]
CPT/HCPCS: 36415; 80053; 83735; 84100; 84443; 85025

== ENCOUNTER 2020-08-21 13:42 | Outpatient (CLI) | payer MEDICARE, BC, OTHER ==
--- NOTE | 2020-08-21 16:40 | XRAY Report ---
PROCEDURE: Lumbar Spine 2 View INDICATIONS: LOW BACK PAIN TECHNIQUE: 3 views of the lumbar spine were acquired. COMPARISON: None. FINDINGS: Bones: 5 [id number] vertebrae are present. Mild demineralization. Trace retrolisthesis L2 on 3 and anterolisthesis L4 on 5. Trace retrolisthesis L5 on S1. There is mil d degenerative disc height loss at multiple levels and moderate to severe disc height loss at L5-S1. Mild facet arthropathy, most evident at the L4-5 and L5-S1 levels. No vertebral body compression fractures. No suspicious bony lesions. Bilateral hip arthroplasties. Soft tissues: Overlying bowel gas pattern is normal. No suspicious soft tissue calcifications. Hea vy atherosclerotic calcification and evidence of prior lower abdominal surgery and cholecystectomy. IMPRESSION: 1. Multilevel degenerative disc height loss. 2. Mild spondylosis as described. Reviewed by: Modesta Rodriguez MD on 08/21/2020 4:39 PM PST Approved by: Modesta Rodriguez MD on 08/21/2020 4:39 PM PST Station ID: [id number]
== END 2020-08-21 13:43 | disposition home or self-care (01) ==
LOC: DI.N 13:42
PROVIDERS: ATTEND Nurse Practitioner Family
DX: M51.36 Other intervertebral disc degeneration, lumbar region (principal); M47.816 Spondylosis without myelopathy or radiculopathy, lumbar region

== ENCOUNTER 2020-09-03 13:06 | Outpatient (CLI) | payer MEDICARE, OTHER ==
--- NOTE | 2020-09-03 16:54 | XRAY Report ---
PROCEDURE: Hips 3-4V BILAT INDICATIONS: LOW BACK PAIN TECHNIQUE: AP and frog-leg lateral views of the bilateral hip were acquired. COMPARISON: None. FINDINGS: Bones: No acute fractures or dislocations. No suspicious bony lesions. The visualized pelvic ring appears intact. Status post bilateral total hip arthroplasty without evidence for hardware loosening or failure. Cement-bone and prosthesis -cement interfaces appear normal. Bilateral femoral head compo nents appear to be well seated in the acetabular cups. Lower lumbar spondylitic changes. Degenerative changes of the bilateral sacroiliac joints. Soft tissues: No suspicious soft tissue calcifications or masses. IMPRESSION: Bilateral hip and pelvis without acute fracture or dislocation. Status post bilateral total hip arthroplasties without evidence for hardware complication. Lower lumbar and bilateral sacroiliac degenerative change. Reviewed by: Jose Cruz eJff MD on 09/03/2020 4:53 PM PDT Approved by: Jose Cruz Jeff MD on 09/03/2020 4:53 PM PDT Station ID: [id number]
== END 2020-09-03 13:07 | disposition home or self-care (01) ==
LOC: DI.N 13:06
PROVIDERS: ATTEND Nurse Practitioner Family
DX: M54.5 Low back pain (principal); M47.816 Spondylosis without myelopathy or radiculopathy, lumbar region; M47.818 Spondylosis without myelopathy or radiculopathy, sacral and sacrococcygeal region; Z96.643 Presence of artificial hip joint, bilateral

== ENCOUNTER 2021-04-17 09:16 | Emergency (ER) | payer MEDICARE, OTHER ==
[2021-04-17 09:27] VITALS: BP 154/89
--- NOTE | 2021-04-17 11:22 | XRAY Report ---
PROCEDURE: Chest 2 View X-Ray INDICATIONS: sternal pain after fall TECHNIQUE: 2 view(s) of the chest. COMPARISON: 10/21/2016, 01/18/2020. Correlation is also made with the accompanying CT examinations. FINDINGS: Surgical changes and devices: Left shoulder postoperative change is seen. Upper abdominal postoperati ve clips are seen on the lateral view, which are likely related to cholecystectomy. Lungs and pleura: No pleural effusions or pneumothorax. Lungs are clear. Flattening of the hemidia phragms can be seen on the lateral view. Mediastinum: Mediastinal contours are normal. Heart size is normal. Calcification is seen of the a ortic arch. Bones and chest wall: In this patient with this given history, scrutiny is given to the sternum. To the limits of this plain film series, no displaced sternal fracture can be seen. No suspicious bony a bnormalities. Age-appropriate degenerative changes are seen. Mild dextroconvex scoliotic curvature i s seen. Soft tissues appear unremarkable. IMPRESSION: No displaced fractures are seen, including no displaced sternal fractures. No pneumothorax is seen. If there is strong clinical concern for a post traumatic abnormality that is not seen on this plain f ilm study, then please consider a dedicated chest CT with IV contrast for further evaluation. The lungs are hyperexpanded. Postoperative and degenerative changes are seen. Reviewed by: Jin Nicholas MD on 04/17/2021 10:21 AM ESTEVAN Approved by: Jin Nicholas MD on 04/17/2021 10:21 AM ESTEVAN Station ID: [id number]
--- NOTE | 2021-04-17 11:24 | CT Report ---
PROCEDURE: MAXILLOFACIAL WO INDICATIONS: facial trauma right side. TECHNIQUE: Noncontrast 1.5 mm thick axial images acquired from the mandible through the frontal sinuses, with co ubaldo and sagittal reformatting. For radiation dose reduction, the following was used: automated ex posure control, adjustment of mA and/or kV according to patient size. COMPARISON: Correlation is made with the accompanying head CT, 04/17/2021. Correlation is also made w ith the accompanying chest radiograph, 04/17/2021. FINDINGS: Image quality: Excellent. Bones and teeth: Orbital mendoza are intact. Sinus mendoza show no fracture or deformity. Nasal bones and septum are intact. Visualized portions of the mandible demonstrate no fractures or subluxation. Zygomatic arches are intact. Pterygoid plates are intact. Visualized portions of the skull base an d auditory canals are intact. Sinuses: Paranasal sinuses are aerated, without fluid levels, mucosal thickening, or mucoceles. Mas toid air cells are aerated. Soft tissues: No edema, masses, or fluid collections. No enlarged lymph nodes. No soft tissue lace rations or debris. Vascular: Visualized vascular structures appear normal in the absence of contrast. Bony vascular fo ramina and canals are intact. IMPRESSION: Negative for displaced fracture. Reviewed by: Jin Nicholas MD on 04/17/2021 10:23 AM ESTEVAN Approved by: Jin Nicholas MD on 04/17/2021 10:23 AM ESTEVAN Station ID: [id number]
--- NOTE | 2021-04-17 11:27 | CT Report ---
PROCEDURE: HEAD WO INDICATIONS: facial trauma/headache TECHNIQUE: Noncontrast 4.5 mm thick angled axial sections acquired from the foramen magnum to the vertex. For r adiation dose reduction, the following was used: automated exposure control, adjustment of mA and/or kV according to patient size. COMPARISON: 01/25/2019 (report only, no images are available at the time of this dictation). Correlat ion is also made with the accompanying maxillofacial CT and chest radiograph, 04/17/2021. FINDINGS: Image quality: Excellent. CSF spaces: Basal cisterns are patent. No extra-axial fluid collections. Ventricles are normal in size and shape. Brain: No midline shift. No intracranial masses or hemorrhage. Rothman-white matter interface is norm al. Scattered remote appearing infarcts are seen. Skull and face: Calvarium and visualized facial bones are intact, without suspicious lesions. Sinuses: Visualized sinuses and mastoids are clear. IMPRESSION: No intracranial hemorrhage is seen. No significant intracranial abnormality is seen. Apparent remote appearing infarcts. No displaced fracture is identified. Reviewed by: Jin Nicholas MD on 04/17/2021 10:26 AM ESTEVAN Approved by: Jin Nicholas MD on 04/17/2021 10:26 AM ESTEVAN Station ID: [id number]
--- NOTE | 2021-04-17 11:27 | ED Physician Documentation ---
PD HPI Fall - Stated complaint Stated Complaint: CHEST PX/FALL - Chief complaint Chief Complaint: Trauma Ch/Bk - History obtained from History obtained from: Patient - History of Present Illness Mechanism of injury: Tripped Fall distance: Standing position Where injury occurred: Park Timing - onset: Yesterday Injury(ies) location: Face, Chest Quality of pain: Pain Associated symptoms: No: LOC, AMS, Amnesia, Seizures, Ear drainage, Nasal drainage, Neck pain, Weakness, Paresthesias, Nausea / vomiting, Hematemesis, Abdominal distension Symptoms improve with: Rest Worsens with: Movement, Palpation Contributing factors: No: Anticoagulated, Intoxicated Similar symptoms before: Has not had sx before Recently seen: Not recently seen - Additional information Additional information: 81-year-old female is walking her dog and the dog park yesterday had another dog come up to her that ran into both of her knees and knocked her over. She fell forward flat onto her face and chest. She had some bruising to her face and denies any pain with movement of her eyes has no visual changes. She has developed some tenderness to the chest wall and she noted that the pain in her chest is in the substernal area and seemed to begin this morning. She has come to the emergency department for evaluation. She is not otherwise ill. She is not having difficulty breathing. Review of Systems Constitutional: denies: Fever Eyes: denies: Loss of vision, Decreased vision, Photophobia Ears: denies: Ear pain Nose: denies: Rhinorrhea / runny nose, Congestion Throat: denies: Sore throat Cardiac: reports: Chest pain / pressure. 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 - Allergies Allergies/Adverse Reactions: Allergies Allergy/AdvReac Type Severity Reaction Status Date / Time No Known Drug Allergies Allergy Verified 04/17/21 09:27 - Social History Does the pt smoke?: No Smoking Status: Never smoker Does the pt have substance abuse?: No - Immunizations Immunizations are current?: Yes - POLST Patient has POLST: No PD ED PE NORMAL - Vitals Vital signs reviewed: Yes (hypertensive) - General General: Alert and oriented X 3, No acute distress, Well developed/nourished - HEENT HEENT: PERRL, EOMI, Other (There is swelling and no ecchymosis to the right cheek there is no pain over the zygomatic arch and there is no entrapment involved.) - Neck Neck: Supple, no meningeal sign, No bony TTP - Cardiac Cardiac: RRR, No murmur - Respiratory Respiratory: No respiratory distress, Clear bilaterally, Other (There is anterior chest wall tenderness along the parasternal area bilaterally.) - Abdomen Abdomen: Soft, Non tender - Back Back: No CVA TTP, No spinal TTP - Derm Derm: Normal color, Warm and dry, No rash - Extremities Extremities: No deformity, No edema - Neuro Neuro: Alert and oriented X 3, 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, No motor deficit, No sensory deficit, Normal speech Eye Opening: Spontaneous Motor: Obeys Commands Verbal: Oriented GCS Score: 15 - Psych Psych: Normal mood, Normal affect Results - Vitals Vitals: Vital Signs - 24 hr 04/17/21 09:23 Temperature 36.0 C L Heart Rate 65 Respiratory 20 Rate Blood Pressure 154/89 H O2 Saturation 99 Oxygen O2 Source Room air - Rads (name of study) maxillofacial CT Radiology: Prelim report reviewed (Impression negative for displaced fracture.), EMP read indepedently, See rad report chest Radiology: Prelim report reviewed (Impression: Now no displaced fractures are seen, including no displaced sternal fractures. No pneumothorax is seen.), EMP read indepedently, See rad report CT head Radiology: Prelim report reviewed (Impression: No intracranial hemorrhage is seen. No significant intracranial abnormality is seen. Apparent remote appearing infarcts. No displaced fractures identified.), EMP read indepedently, See rad report PD MEDICAL DECISION MAKING - ED course Complexity details: considered differential, d/w patient ED course: 81-year-old female with a fall onto her face has some facial bruising without evidence of fracture there is no intracranial injury and a plain film of her chest does not demonstrate any evidence of sternal fracture. She does have a contusion to her chest wall and will likely have some additional pain associated with this over time. Departure - Departure Disposition: 01 Home, Self Care Clinical Impression: Contusion of face Qualifiers: Encounter type: initial encounter Qualified Code(s): S00.83XA - Contusion of other part of head, initial encounter Chest wall contusion Qualifiers: Encounter type: initial encounter Laterality: unspecified laterality Qualified Code(s): S20.219A - Contusion of unspecified front wall of thorax, initial encounter Condition: Stable Instructions: ED Contusion Chest Wall, ED Contusion Face Follow-Up: BILL ARMIJO MSN, PRESSING MACHINE OPERATOR [Primary Care Provider] - Discharge Date/Time: 04/17/21 11:46
== END 2021-04-17 11:46 | disposition home or self-care (01) ==
LOC: ED 09:16
DX: S00.83XA Contusion of other part of head, initial encounter (principal); S20.219A Contusion of unspecified front wall of thorax, initial encounter; W54.1XXA Struck by dog, initial encounter; W01.0XXA Fall on same level from slipping, tripping and stumbling without subsequent striking against object, initial encounter; Y93.K1 Activity, walking an animal; Y92.830 Public park as the place of occurrence of the external cause
CPT/HCPCS: 99282; 99284

== ENCOUNTER 2021-04-28 13:52 | Outpatient (CLI) | payer MEDICARE ==
--- NOTE | 2021-04-28 14:52 | XRAY Report ---
PROCEDURE: Chest 2 View X-Ray INDICATIONS: ANTERIOR CHEST WALL PX TECHNIQUE: 2 view(s) of the chest. COMPARISON: CXR 04/17/2021. FINDINGS: Surgical changes and devices: Left shoulder arthroplasty. Cholecystectomy clips. Lungs and pleura: No pleural effusions or pneumothorax. Lungs are clear. Mediastinum: Mediastinal contours are normal. Heart size is normal. Bones and chest wall: No suspicious bony abnormalities. No fracture is identified. Soft tissues gino ear unremarkable. IMPRESSION: No fracture is identified. Lungs are clear. If clinically indicated CT of the chest could be performed for further evaluation. Reviewed by: Angelo Holt MD on 04/28/2021 2:51 PM PST Approved by: Angelo Holt MD on 04/28/2021 2:51 PM PST Station ID: [id number]
== END 2021-04-28 23:59 | disposition home or self-care (01) ==
LOC: DI.N 13:52
PROVIDERS: ATTEND Family Medicine
DX: R07.89 Other chest pain (principal)

== ENCOUNTER 2021-05-13 08:00 | Outpatient (CLI) | payer MEDICARE ==
--- NOTE | 2021-05-13 15:53 | XRAY Report ---
PROCEDURE: Lumbar Spine 2 View INDICATIONS: LUMBAR BACK PX WITH RADICULOPATHY TECHNIQUE: 3 views of the lumbar spine were acquired. COMPARISON: None. FINDINGS: Bones: 5 [id number] vertebrae are present. There is mild grade 1 anterolisthesis of L4 on L5. M ild grade 1 retrolisthesis of L2 on L3 is also noted. No vertebral body compression fractures. No orozco spicious bony lesions. Multilevel disc space narrowing and degenerative endplate changes are seen, s lightly more prominent at the L2-3 and L5-S1 levels. Facet hypertrophy is seen from L3-4 through L5-S 1. Bilateral hip arthroplasties are noted. Soft tissues: Overlying bowel gas pattern is normal. No suspicious soft tissue calcifications. Rig ht upper quadrant cholecystectomy clips are noted. Aortic atherosclerotic calcifications are seen. IMPRESSION: No acute osseous abnormality. Multilevel spondylosis. Reviewed by: Chintan Astorga MD on 05/13/2021 3:52 PM PST Approved by: Chintan Astorga MD on 05/13/2021 3:52 PM PST Station ID: [id number]
== END 2021-05-13 23:59 | disposition home or self-care (01) ==
LOC: DI.N 08:00
PROVIDERS: ATTEND Family Medicine
DX: M43.16 Spondylolisthesis, lumbar region (principal); M47.26 Other spondylosis with radiculopathy, lumbar region; M47.27 Other spondylosis with radiculopathy, lumbosacral region; M51.16 Intervertebral disc disorders with radiculopathy, lumbar region; M51.17 Intervertebral disc disorders with radiculopathy, lumbosacral region

== ENCOUNTER 2021-07-03 08:00 | Outpatient (CLI) | payer MEDICARE | END 2021-07-03 23:59 | disposition home or self-care (01) | LOC: LAB.N 08:00 | PROVIDERS: ATTEND Physician Assistant | DX: U07.1 COVID-19 (principal) ==

== ENCOUNTER 2021-07-06 20:41 | Outpatient (CLI) | payer MEDICARE | END 2021-07-06 20:42 | disposition EMS.NT | LOC: EMS 20:41 | DX: Z03.89 Encounter for observation for other suspected diseases and conditions ruled out (principal) ==

== ENCOUNTER 2021-07-12 05:55 | Outpatient (CLI) | payer MEDICARE | END 2021-07-12 05:56 | disposition critical access hospital (66) | LOC: EMS 05:55 | DX: R00.0 Tachycardia, unspecified (principal); R61 Generalized hyperhidrosis | CPT/HCPCS: A0425; A0429 ==

== ENCOUNTER 2021-07-12 06:12 | Emergency (ER) | payer MEDICARE ==
--- NOTE | 2021-07-12 06:31 | ED Physician Documentation ---
History of Present Illness - Stated complaint Stated Complaint: C+/HEART RACING - History obtained from History obtained from: Patient - Additonal information Additional information: 81yF, previously healthy and living independently at home with , history of covid 4 weeks ago with symptom resolution 2 weeks ago presents after waking from sleep with palpitations, diaphoresis, and sudden onset L sided chest tightness, nonradiating, lasting about 30 min. on ems arrival patient was found to have o2 sat 90%, BP 144/69, HR 65, temp 95.3 . She was placed on oxygen by nasal cannula and went to 100%, then was taken off. denies soa, cough, leg swelling, hemoptysis, fevers. states she has felt fine the past couple weeks. 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 Review of Systems Ten Systems: 10 systems reviewed and negative Constitutional: denies: Fever, Chills Cardiac: reports: Chest pain / pressure, Palpitations Respiratory: denies: Dyspnea, Cough GI: denies: Nausea, Vomiting PD PAST MEDICAL HISTORY - Past Medical History Cardiovascular: None Respiratory: COPD Neuro: None Endocrine/Autoimmune: None GI: GERD MEDICAL ADMINISTRATIVE ASSISTANT: None : None HEENT: None Psych: None Musculoskeletal: Osteopenia Derm: None - Past Surgical History Past Surgical History: No General: Cholecystectomy Ortho: Hip replacement, Other /MEDICAL ADMINISTRATIVE ASSISTANT: section - Allergies Allergies/Adverse Reactions: Allergies Allergy/AdvReac Type Severity Reaction Status Date / Time No Known Drug Allergies Allergy Verified 07/12/21 06:31 - Social History Does the pt smoke?: No Smoking Status: Never smoker Does the pt have substance abuse?: No - Immunizations Immunizations are current?: Yes - POLST Patient has POLST: No PD ED PE NORMAL - Vitals Vital signs reviewed: Yes - General General: Alert and oriented X 3, No acute distress, Well developed/nourished - HEENT HEENT: Atraumatic, PERRL, EOMI - Neck Neck: Supple, no meningeal sign - Cardiac Cardiac: RRR - Respiratory Respiratory: No respiratory distress, Clear bilaterally - Abdomen Abdomen: Non tender, Non distended - Derm Derm: Normal color, Warm and dry - Extremities Extremities: No deformity, No edema, No calf tenderness / cord - Neuro Neuro: Alert and oriented X 3, No motor deficit, No sensory deficit - Psych Psych: Normal mood, Normal affect Results - Vitals Vitals: Vital Signs - 24 hr 07/12/21 06:31 Temperature 37.1 C Heart Rate 68 Respiratory 17 Rate Blood Pressure 137/71 H O2 Saturation 97 Oxygen O2 Source Room air - EKG (time done) 0620 Rate: Rate (enter#) (68) Rhythm: NSR Intervals: Normal AL QRS: Normal Compare to prior EKG: Unchanged from prior EKG (01/18/20) PD MEDICAL DECISION MAKING - ED course ED course: 81yF p/w palpitations, diaphoresis, and chest discomfort, all now resolved. HEART score 2 (age). Patient endorsed to Dr. Florentino awaiting lab results, 2nd troponin.
[2021-07-12 06:44] LABS: BASOPHILS % (AUTO) 0.3 %; EOSINOPHILS # (AUTO) 0.1 10^3/uL (0.0-0.7); EOSINOPHILS % (AUTO) 2.1 %; HCT - HEMATOCRIT 40.2 % (37.0-47.0); HGB - HEMOGLOBIN 13.4 g/dL (12.0-16.0); LYMPHOCYTES # (AUTO) 0.9 10^3/uL (1.5-3.5); MEAN CORPUSCULAR HEMOGLOBIN 30.6 pg (27.0-31.0); MEAN CORPUSCULAR HGB CONC 33.3 g/dL (32.0-36.0); MEAN CORPUSCULAR VOLUME 91.8 fL (81.0-99.0); MEAN PLATELET VOLUME 9.3 fL (7.9-10.8); MONOCYTES # (AUTO) 0.5 10^3/uL (0.0-1.0); MONOCYTES % (AUTO) 7.7 %; NEUTROPHILS # (AUTO) 4.6 10^3/uL (1.5-6.6); NEUTROPHILS % (AUTO) 74.9 %; PLT - PLATELET COUNT 345 10^3/uL (130-450); RED BLOOD COUNT 4.38 10^6/uL (4.20-5.40); RED CELL DISTRIBUTION WIDTH 12.9 % (12.0-15.0); WHITE BLOOD COUNT 6.2 x10^3/uL (4.8-10.8)
[2021-07-12 06:56] LABS: ALBUMIN 3.1 g/dL (3.2-5.5); ALBUMIN/GLOBULIN RATIO 0.8 (1.0-2.2); BILIRUBIN,TOTAL 0.7 mg/dL (0.2-1.0); CALCIUM 8.4 mg/dL (8.5-10.3); CREATININE 0.6 mg/dL (0.4-1.0); POTASSIUM 3.3 mmol/L (3.5-5.0); TOTAL PROTEIN 6.9 g/dL (6.7-8.2)
--- NOTE | 2021-07-12 08:15 | XRAY Report ---
PROCEDURE: Chest 1 View X-Ray INDICATIONS: Chest Pain TECHNIQUE: One view of the chest was acquired. COMPARISON: 04/28/2021 FINDINGS: Surgical changes and devices: Left shoulder arthroplasty. Lungs and pleura: No pleural effusions or pneumothorax. Moderate diffuse reticular nodular pulmonary opacity. Mediastinum: Mediastinal contours appear normal. Heart size is normal. Bones and chest wall: No suspicious bony lesions. Overlying soft tissues appear unremarkable. IMPRESSION: Moderate atypical pneumonia. Reviewed by: Thor Soler MD on 07/12/2021 8:13 AM PST Approved by: Thor Soler MD on 07/12/2021 8:13 AM PST Station ID: [id number]
--- NOTE | 2021-07-12 09:38 | ED Physician Documentation ---
ED Addendum - Addendum Addendum: 07/12/21 09:35 The patient was signed out to me by Dr. Tompkins, pending repeat troponin and reevaluation. The patient was stable in the emergency department without further complaints and did not have any dysrhythmias or episodes of chest pain while here. She had been asymptomatic since her arrival in the emergency department. Her repeat troponin was essentially unchanged from her first one. I felt the patient was stable for discharge home. I am not sure exactly what has caused her episode of chest pain and palpitations earlier today, but I have advised her that it is very important that she follows up with her primary care physician to discuss whether a stress test should be done or an event monitor. The patient understands that if she develops any further chest pain that does not subside after a few minutes, especially if accompanied by shortness of breath, she should return to the emergency department. Final impression: 1. Atypical chest pain 2. Palpitations Disposition: Home in stable condition. 07/12/21 09:37
[2021-07-12 09:43] VITALS: BP 136/72
== END 2021-07-12 10:01 | disposition home or self-care (01) ==
LOC: EDUNIT# → ED 06:12
DX: R07.89 Other chest pain (principal); R00.2 Palpitations; Z86.16 Personal history of COVID-19
CPT/HCPCS: 36415; 80053; 83690; 84484; 85025; 93005; 99283; 99284

== ENCOUNTER 2021-09-01 07:30 | Outpatient (CLI) | payer MEDICARE ==
[2021-09-01 11:51] LABS: BASOPHILS # (AUTO) 0.1 10^3/uL (0.0-0.1); EOSINOPHILS # (AUTO) 0.4 10^3/uL (0.0-0.7); EOSINOPHILS % (AUTO) 5.6 %; HCT - HEMATOCRIT 43.3 % (37.0-47.0); HGB - HEMOGLOBIN 13.9 g/dL (12.0-16.0); LYMPHOCYTES # (AUTO) 1.7 10^3/uL (1.5-3.5); LYMPHOCYTES % (AUTO) 21.6 %; MEAN CORPUSCULAR HEMOGLOBIN 30.4 pg (27.0-31.0); MEAN CORPUSCULAR HGB CONC 32.1 g/dL (32.0-36.0); MEAN CORPUSCULAR VOLUME 94.7 fL (81.0-99.0); MEAN PLATELET VOLUME 9.9 fL (7.9-10.8); MONOCYTES # (AUTO) 0.6 10^3/uL (0.0-1.0); NEUTROPHILS # (AUTO) 4.9 10^3/uL (1.5-6.6); NEUTROPHILS % (AUTO) 63.5 %; PLT - PLATELET COUNT 302 10^3/uL (130-450); RED BLOOD COUNT 4.57 10^6/uL (4.20-5.40); RED CELL DISTRIBUTION WIDTH 13.7 % (12.0-15.0); WHITE BLOOD COUNT 7.7 x10^3/uL (4.8-10.8)
[2021-09-01 12:40] LABS: ALBUMIN 4.2 g/dL (3.2-5.5); ALBUMIN/GLOBULIN RATIO 1.3 (1.0-2.2); ALKALINE PHOSPHATASE 65 IU/L (42-121); ALT ALANINE AMINOTRANSFERASE 15 IU/L (10-60); AST ASPARTATE AMINOTRANSFERASE 20 IU/L (10-42); BILIRUBIN,TOTAL 0.9 mg/dL (0.2-1.0); BUN - BLOOD UREA NITROGEN 18 mg/dL (6-20); CALCIUM 9.4 mg/dL (8.5-10.3); CARBON DIOXIDE - CO2 27 mmol/L (21-32); CHLORIDE 101 mmol/L (101-111); CHOLESTEROL 230 mg/dL; CREATININE 0.7 mg/dL (0.4-1.0); GFR - MDRD 80 (>89); GLUCOSE 97 mg/dL (70-100); HDL CHOLESTEROL 76 mg/dL; LDL CHOLESTEROL,CALCULATED 136 mg/dL; LDL/HDL RATIO 1.8 (<4.4); POTASSIUM 3.9 mmol/L (3.5-5.0); SODIUM 139 mmol/L (135-145); TOTAL PROTEIN 7.5 g/dL (6.7-8.2); TRIGLYCERIDES 92 mg/dL; VLDL CHOLESTEROL 18 mg/dL
[2021-09-01 12:47] LABS: THYROID STIMULATING HORMONE 4.85 uIU/mL (0.34-5.60)
== END 2021-09-01 07:31 | disposition home or self-care (01) ==
LOC: LAB.N 07:30
PROVIDERS: ATTEND Family Medicine
DX: E87.6 Hypokalemia (principal); F41.9 Anxiety disorder, unspecified; J44.9 Chronic obstructive pulmonary disease, unspecified; K21.9 Gastro-esophageal reflux disease without esophagitis; M85.80 Other specified disorders of bone density and structure, unspecified site
CPT/HCPCS: 36415; 80053; 80061; 83721; 84443; 85025

== ENCOUNTER 2021-12-07 15:11 | Outpatient (CLI) | payer MEDICARE ==
--- NOTE | 2021-12-08 10:36 | Ultrasound Report ---
PROCEDURE: Head or Neck Soft Tissue INDICATIONS: THYRODI NODULE INDICATIONS: THYRODI NODULE TECHNIQUE: Real-time scanning was performed of the thyroid gland, with image documentation. COMPARISON: Prior thyroid ultrasound dated 02/15/2019 FINDINGS: Right: Thyroid lobe measures 1.1 x 1.2 x 4.2 cm, and is homogeneous in echotexture. Left: Thyroid lobe measures 1.5 x 1.6 x 3.8 cm, and is homogenous in echotexture. Isthmus: 3.0 mm thick. Nodule number: One Location: Right superior Size: Unchanged at 0.5 x 0.2 x 0.4 cm. Composition: Solid Echogenicity: Hypoechoic Shape: Wider than tall. Margins: Smooth Echogenic foci: None Total points: 4 ACR TI-RADS category: Moderately suspicious Nodule number: Two Location: Right superior medial Size: Unchanged at 0.5 x 0.2 x 0.4 cm. Composition: Solid Echogenicity: Hypoechoic Shape: wider than tall. Margins: Smooth Echogenic foci: None Total points: 4 ACR TI-RADS category: Moderately suspicious Nodule number: Three Location: Left superior Size: Unchanged at 0.5 x 0.4 x 0.4 cm. Composition: Solid Echogenicity: Isoechoic Shape: wider than tall. Margins: Smooth Echogenic foci: None Total points: 3 ACR TI-RADS category: Mildly suspicious Nodule number: Four Location: Left inferior Size: Unchanged at 2.0 x 1.4 x 1.3 cm. Composition: Solid Echogenicity: Isoechoic Shape: wider than tall. Margins: Size Echogenic foci: None Total points: 3 ACR TI-RADS category: Mildly suspicious IMPRESSION: Stable appearance of bilateral thyroid nodules. Recommend continued follow-up sonography as detailed below. ACR TI-RADS definitions and recommendations: TI-RADS 1 (benign): 0 points. FNA not needed. TI-RADS 2 (not suspicious): 2 points. FNA not needed. TI-RADS 3 (mildly suspicious): 3 points. "FNA if 2.5 cm or larger, follow up if 1.5 cm or larger (at 1, 3, and 5 years). TI-RADS 4 (moderately suspicious): 4-6 points. "FNA if 1.5 cm or larger, follow up if 1 cm or larger (at 1, 2, 3, and 5 years). TI-RADS 5 (highly suspicious): 7 points or more. "FNA if 1 cm or larger, follow up if 0.5 cm or larger (every year for 5 years). Reviewed by: JOSE ALFREDO Prater on 12/08/2021 10:35 AM PDT Approved by: Nasreen Amador MD on 12/08/2021 10:35 AM PDT Station ID: [id number]
== END 2021-12-07 15:12 | disposition home or self-care (01) ==
LOC: DI 15:11
PROVIDERS: ATTEND Family Medicine
DX: E04.2 Nontoxic multinodular goiter (principal)

== ENCOUNTER 2021-12-09 12:27 | Outpatient (CLI) | payer MEDICARE ==
--- NOTE | 2021-12-09 15:22 | XRAY Report ---
PROCEDURE: Cervical Spine Complete INDICATIONS: CERVICALGIA TECHNIQUE: 4 views of the cervical spine acquired. COMPARISON: None. FINDINGS: Bones: No fractures or dislocations to the vertebra level. Multilevel degenerative changes with mul tilevel disc space narrowing and osteophytes. No vertebral body height loss. The left C2-3 and C3-4 f oramina demonstrate mild stenosis. The right C3-4, C4-5, and C5-6 foramina demonstrate mild stenosis. Odontoid is intact. Soft tissues: No prevertebral soft tissue swelling. IMPRESSION: Multilevel degenerative changes of the cervical spine with multilevel disc disease and foraminal stenosis. Reviewed by: Baldomero Almaraz on 12/09/2021 3:21 PM PDT Approved by: Baldomero Almaraz on 12/09/2021 3:21 PM PDT Station ID: [id number]
== END 2021-12-09 12:28 | disposition home or self-care (01) ==
LOC: DI 12:27
PROVIDERS: ATTEND Family Medicine
DX: M47.812 Spondylosis without myelopathy or radiculopathy, cervical region (principal); M48.02 Spinal stenosis, cervical region

== ENCOUNTER 2022-06-29 07:16 | Outpatient (CLI) | payer MEDICARE ==
[2022-06-29 12:51] LABS: BASOPHILS # (AUTO) 0.1 10^3/uL (0.0-0.1); BASOPHILS % (AUTO) 0.9 %; EOSINOPHILS # (AUTO) 0.3 10^3/uL (0.0-0.7); EOSINOPHILS % (AUTO) 5.3 %; HCT - HEMATOCRIT 43.5 % (37.0-47.0); HGB - HEMOGLOBIN 13.7 g/dL (12.0-16.0); LYMPHOCYTES # (AUTO) 1.1 10^3/uL (1.5-3.5); LYMPHOCYTES % (AUTO) 20.8 %; MEAN CORPUSCULAR HGB CONC 31.5 g/dL (32.0-36.0); MEAN CORPUSCULAR VOLUME 95.2 fL (81.0-99.0); MEAN PLATELET VOLUME 9.5 fL (7.9-10.8); MONOCYTES # (AUTO) 0.5 10^3/uL (0.0-1.0); MONOCYTES % (AUTO) 9.6 %; NEUTROPHILS # (AUTO) 3.4 10^3/uL (1.5-6.6); PLT - PLATELET COUNT 323 10^3/uL (130-450); RED BLOOD COUNT 4.57 10^6/uL (4.20-5.40); RED CELL DISTRIBUTION WIDTH 13.5 % (12.0-15.0); WHITE BLOOD COUNT 5.4 x10^3/uL (4.8-10.8)
[2022-06-29 13:24] LABS: ALBUMIN 4.2 g/dL (3.2-5.5); ALBUMIN/GLOBULIN RATIO 1.4 (1.0-2.2); ALKALINE PHOSPHATASE 56 IU/L (42-121); ALT ALANINE AMINOTRANSFERASE 14 IU/L (10-60); AST ASPARTATE AMINOTRANSFERASE 21 IU/L (10-42); BILIRUBIN,TOTAL 0.8 mg/dL (0.2-1.0); BUN - BLOOD UREA NITROGEN 18 mg/dL (6-20); CARBON DIOXIDE - CO2 28 mmol/L (21-32); CHLORIDE 100 mmol/L (101-111); CHOL/HDL RATIO 2.8 (<4.4); CHOLESTEROL 237 mg/dL; CREATININE 0.7 mg/dL (0.4-1.0); GFR - MDRD 80 (>89); GLUCOSE 88 mg/dL (70-100); HDL CHOLESTEROL 85 mg/dL; LDL CHOLESTEROL,CALCULATED 136 mg/dL; LDL/HDL RATIO 1.6 (<4.4); SODIUM 135 mmol/L (135-145); TOTAL PROTEIN 7.3 g/dL (6.7-8.2); TRIGLYCERIDES 81 mg/dL; VLDL CHOLESTEROL 16 mg/dL
[2022-06-29 13:30] LABS: THYROID STIMULATING HORMONE 5.05 uIU/mL (0.34-5.60)
[2022-06-29 13:32] LABS: FREE T3 2.75 pg/mL (2.5-3.9); FREE T4 (FREE THYROXINE) 0.97 ng/dL (0.58-1.64)
== END 2022-06-29 07:17 | disposition home or self-care (01) ==
LOC: LAB.N 07:16
PROVIDERS: ATTEND Family Medicine
DX: M54.2 Cervicalgia (principal); E87.6 Hypokalemia; J44.9 Chronic obstructive pulmonary disease, unspecified; E04.1 Nontoxic single thyroid nodule; R13.10 Dysphagia, unspecified
CPT/HCPCS: 36415; 80053; 80061; 83721; 84439; 84443; 84481; 85025

== ENCOUNTER 2022-07-27 12:39 | Outpatient (CLI) | payer MEDICARE ==
[2022-07-27 13:15] VITALS: BP 154/74
== END 2022-07-27 12:40 | disposition home or self-care (01) ==
LOC: MAC.MOP 12:39
PROVIDERS: ATTEND Family Medicine
DX: R00.2 Palpitations (principal); R42 Dizziness and giddiness
CPT/HCPCS: 93246

== ENCOUNTER 2022-08-08 10:45 | Outpatient (CLI) | payer MEDICARE | END 2022-08-08 10:46 | disposition EMS.NT | LOC: EMS 10:45 | DX: R42 Dizziness and giddiness (principal); R00.2 Palpitations; F41.9 Anxiety disorder, unspecified ==

== ENCOUNTER 2022-08-25 13:29 | Outpatient (CLI) | payer MEDICARE | END 2022-08-25 13:30 | disposition home or self-care (01) | LOC: MAC.INF 13:29 | PROVIDERS: ATTEND Family Medicine | DX: I47.1 Supraventricular tachycardia (principal); I49.3 Ventricular premature depolarization; I49.1 Atrial premature depolarization | CPT/HCPCS: 93248 ==

== ENCOUNTER 2023-01-06 07:18 | Outpatient (CLI) | payer MEDICARE | END 2023-01-06 23:59 | disposition critical access hospital (66) | LOC: EMS 07:18 | DX: H53.8 Other visual disturbances (principal); H53.2 Diplopia; R26.81 Unsteadiness on feet; R27.9 Unspecified lack of coordination | CPT/HCPCS: A0425; A0429 ==

== ENCOUNTER 2023-01-06 07:35 | Emergency (ER) | payer MEDICARE ==
--- NOTE | 2023-01-06 08:03 | ED Physician Documentation ---
PD HPI FOCAL NEURO - Stated complaint Stated Complaint: BLURRED VISION - Chief complaint Chief Complaint: Neuro - History obtained from History obtained from: Patient, EMS - History of Present Illness Timing - onset: Today (awoke and noted diplopia and blurred vision. Got up from bed and felt off balance, having tohold on to keep from tipping. No focal weakness. Called EMS. They noted no focal weaknesses.) Timing - details: Abrupt onset, Still present Severity of deficit: Moderate Weakness: No: Face, Arm, Leg Numbness: No: Face, Arm, Leg Associated symptoms: Headache (has had a week or so of posterior head/neck pain without injury. Seen in office 2 days ago for it and given Rx (which she had not taken yet as Rx just gotten yesterday).) Contributing factors: negative: Anticoagulated Baseline status: positive: A&OX3, ambulatory, indep, Other (usually productive and alert. 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[employer].) Similar symptoms before: Has not had sx before Recently seen: Clinic (for neck pain) Review of Systems Constitutional: denies: Fever, Chills Eyes: denies: Photophobia, Irritation Ears: denies: Tinnitus/ringing Nose: denies: Rhinorrhea / runny nose, Congestion Throat: denies: Sore throat Respiratory: denies: Cough GI: denies: Nausea, Vomiting, Diarrhea Musculoskeletal: reports: Neck pain Neurologic: denies: Focal weakness, Numbness, Altered mental status, Head injury PD PAST MEDICAL HISTORY - Past Medical History Cardiovascular: None Respiratory: COPD Neuro: None Endocrine/Autoimmune: None GI: GERD DIRECTOR OPERATING: None : None HEENT: None Psych: None Musculoskeletal: Osteopenia Derm: None - Past Surgical History Past Surgical History: No General: Cholecystectomy, Colonoscopy Ortho: Hip replacement, Other /DIRECTOR OPERATING: section - Present Medications Home Medications: Ambulatory Orders Medication Instructions Recorded Confirmed Esomeprazole Magnesium [Nexium] 40 mg PO DAILY 07/27/22 01/06/23 Multivitamin 1 each PO DAILY 12/28/22 01/06/23 Meloxicam 15 mg PO DAILY 01/06/23 01/06/23 - Allergies Allergies/Adverse Reactions: Allergies Allergy/AdvReac Type Severity Reaction Status Date / Time No Known Drug Allergies Allergy Verified 01/06/23 07:42 - Social History Does the pt smoke?: No Smoking Status: Never smoker Does the pt have substance abuse?: No - Immunizations Immunizations are current?: Yes - POLST Patient has POLST: No PD ED PE NORMAL - Vitals Vital signs reviewed: Yes - General General: Alert and oriented X 3, No acute distress, Well developed/nourished - HEENT HEENT: PERRL, EOMI (she states doubled vision looking straight, with correcting to single finger appearance with gaze to right and upward, worse downward, no change to left. Each eye separately has okay vision. ) - Neck Neck: Supple, no meningeal sign, No adenopathy - Cardiac Cardiac: RRR, No murmur - Respiratory Respiratory: Clear bilaterally - Abdomen Abdomen: Soft, Non tender - Back Back: No spinal TTP - Derm Derm: Normal color, Warm and dry - Extremities Extremities: Normal ROM s pain, No calf tenderness / cord - Neuro Neuro: Alert and oriented X 3, No motor deficit, No sensory deficit, Normal speech Eye Opening: Spontaneous Motor: Obeys Commands Verbal: Oriented GCS Score: 15 - Psych Psych: Normal mood Results - Vitals Vitals: Vital Signs - 24 hr 01/06/23 01/06/23 01/06/23 07:39 10:42 14:00 Temperature 36.6 C Heart Rate 60 69 64 Respiratory 16 16 18 Rate Blood Pressure 139/65 H 151/84 H 145/77 H O2 Saturation 95 98 93 01/06/23 01/06/23 16:56 17:36 Temperature Heart Rate 61 82 Respiratory 15 18 Rate Blood Pressure 145/71 H 141/72 H O2 Saturation 98 95 Oxygen O2 Source Room air - Labs Labs: Laboratory Tests 01/06/23 01/06/23 01/06/23 08:10 08:10 08:10 WBC 5.0 RBC 4.26 Hgb 13.3 Hct 40.1 MCV 94.1 MCH 31.2 H MCHC 33.2 RDW 12.8 Plt Count 224 MPV 9.0 Neut # (Auto) 3.1 Lymph # (Auto) 1.0 L [place] # (Auto) 0.5 Eos # (Auto) 0.4 Baso # (Auto) 0.1 Absolute Nucleated RBC 0.00 Nucleated RBC % 0.0 ESR 7 Sodium 139 Potassium 3.8 Chloride 106 Carbon Dioxide 28 Anion Gap 5.0 L BUN 21 H Creatinine 0.6 Estimated GFR (MDRD) 96 Glucose 100 Calcium 9.1 Magnesium 1.7 Total Bilirubin 0.7 AST 14 ALT 11 Alkaline Phosphatase 57 Total Protein 6.6 Albumin 4.0 Globulin 2.6 Albumin/Globulin Ratio 1.5 Lipase 10 L - Rads (name of study) head/neck angio Relevant Findings:: Prelim report reviewed (no acute findings, normal flow through vessels. ), EMP independent interpretation of test, See rad report brain MRI Relevant Findings:: Prelim report reviewed (no acute abnormalities. ), See rad report PD Medical Decision Making - ED course Complexity details: considered differential ED course: Onset of diplopia and some blurred vision along with feeling off balance when awakening this morning. She is not sure if the balance issue relates to the diplopia and vision. She denied any focal weaknesses. No headache. She has not had similar episodes. She states each eye separately has good vision but together is doubled and somewhat out of focus. No recent change in medicines. No recent injury. No fevers. She has diplopia which corrects with eye movement to the right and worse to the left and down. I do not see an obvious disconjugate gaze but going by her symptoms. It sounds likely a IM muscle abnormality or the nerves to the eye muscles. She has been having neck pain for the last several days to a week. This certainly could go together as a vertebral artery insufficiency or dissection. Started with CTA of the neck and head. The CTA of the head and neck did not show any vascular abnormalities nor flow deficiencies of significance. No structural abnormalities such as tumors or bleeding. The patient was having improved symptoms with some less diplopia and less feeling of off balance. She subsequently was able to walk to the bathroom and back unassisted. However I still have concern with the vision change and off balance of posterior circulation abnormality or other structural problems such as MS etc. MRI of the brain seemed appropriate and indicated to evaluate for acute processes. She did have to wait several hours for this to occur. Subsequently the brain MRI was able to be performed and with is short delay, the radiology reading resulted as well. No acute abnormality was found in this. At this point I would have to assume she was having a palsy of one of the muscles of the eye movement. Given the improvement to single vision and worsening double vision that she has, I would be inclined to think it was a 6 abducens nerve of the left that was weekend. She is having improved symptoms already so less likely to think a inflammatory or immune related condition (missael to a Treadwell palsy). This could be similar to a TIA with involvement there in the resolution now. As such I would suggest a baby aspirin daily.. Otherwise consider peripheral nerve palsy and some anti-inflammatories in the short-term. Departure - Departure Disposition: 01 Home, Self Care Clinical Impression: Diplopia, Ataxia Condition: Stable Record reviewed to determine appropriate education?: Yes Follow-Up: Chay Edmondson MD [Primary Care Provider] - Comments: Your CT scan did not show any blood flow abnormalities in the neck or head and no obvious structural or bony problems in the neck. There was some arthritis noted. Presume that your neck pain you been having is musculoskeletal/arthritis. The brain MRI did not show any signs of tumors, stroke, MS, other structural abnormalities. At this point I would presume you are double vision and off-balance symptoms related more to problems in the muscles and nerves controlling the eye-movement. (sort of like a Treadwell palsy of the face, only involving the muscle of eye movement instead). It is good that your symptoms have improved a fair amount at this point. You can use the anti-inflammatory prescribed by your primary care (meloxicam). I would also suggest a baby aspirin daily and staying well-hydrated. Take a baby aspirin daily. Follow-up with your primary care if persistent or recurrent symptoms. Forms: PCP List
[2023-01-06 08:14] LABS: BASOPHILS # (AUTO) 0.1 10^3/uL (0.0-0.1); BASOPHILS % (AUTO) 1.4 %; EOSINOPHILS # (AUTO) 0.4 10^3/uL (0.0-0.7); HCT - HEMATOCRIT 40.1 % (37.0-47.0); HGB - HEMOGLOBIN 13.3 g/dL (12.0-16.0); LYMPHOCYTES % (AUTO) 18.9 %; MEAN CORPUSCULAR HEMOGLOBIN 31.2 pg (27.0-31.0); MEAN CORPUSCULAR HGB CONC 33.2 g/dL (32.0-36.0); MEAN CORPUSCULAR VOLUME 94.1 fL (81.0-99.0); MONOCYTES # (AUTO) 0.5 10^3/uL (0.0-1.0); MONOCYTES % (AUTO) 10.1 %; NEUTROPHILS # (AUTO) 3.1 10^3/uL (1.5-6.6); NEUTROPHILS % (AUTO) 62.2 %; PLT - PLATELET COUNT 224 10^3/uL (130-450); RED BLOOD COUNT 4.26 10^6/uL (4.20-5.40); RED CELL DISTRIBUTION WIDTH 12.8 % (12.0-15.0)
[2023-01-06 08:31] LABS: ALBUMIN/GLOBULIN RATIO 1.5 (1.0-2.2); BILIRUBIN,TOTAL 0.7 mg/dL (0.2-1.0); CALCIUM 9.1 mg/dL (8.5-10.3); CREATININE 0.6 mg/dL (0.6-1.3); MAGNESIUM 1.7 mg/dL (1.7-2.3); POTASSIUM 3.8 mmol/L (3.5-4.5); TOTAL PROTEIN 6.6 g/dL (6.4-8.9)
[2023-01-06] MEDS ORDERED: iohexoL-300 100 ML VIAL ONE (08:44)
--- NOTE | 2023-01-06 11:30 | CT Report ---
PROCEDURE: CT Angio Head/Neck INDICATIONS: diplopia and ataxia onset this AM TECHNIQUE: Pre-contrast 4.5 mm thick sections acquired from the foramen magnum to the vertex. After the adminis tration of intravenous contrast, 1 mm thick sections acquired from the aortic arch through the [place]. Post-contrast 4.5 mm thick sections then re-acquired from the foramen magnum to the vert ex. 3-dimensional lsxwdkn-rzaxqkqil-qzubhhcjkk (MIP) and/or volume rendering reformats were acquired of the central intracranial vasculature and neck separately. For radiation dose reduction, the foll owing was used: automated exposure control, adjustment of mA and/or kV according to patient size. CONTRAST: 80ml omni 300 COMPARISON: None. FINDINGS: Image quality: Excellent. BRAIN: CSF spaces: Ventricles are normal in size and shape. Basal cisterns are patent. No extra-axial flu id collections. Brain: No midline shift. No intracranial bleeds or masses. Rothman-white matter interface appears int act. Leukoaraiosis, commonly caused by chronic small vessel ischemic disease. Age-related volume loss . Skull and face: Calvarium and facial bones appear intact, without suspicious lesions. Orbits appear normal. Sinuses: Sinuses and mastoids are clear. HEAD CT ANGIOGRAPHY: Anterior circulation: Intracranial internal carotid arteries are normal in size and flow. The flow within the paired anterior cerebral arteries is normal and symmetric. The flow within the middle cer ebral arteries is normal and symmetric. The anterior communicating artery is seen. No aneurysms are seen. Posterior circulation: Visualized portions of the vertebral arteries demonstrate normal caliber, and join to form a normal appearing basilar artery. Flow within the posterior cerebral arteries is norm al and symmetric. No aneurysms are seen. NECK CT ANGIOGRAPHY: Carotid system: The great vessels demonstrate a conventional anatomy as they arise from the aortic a [facility]. The origins of the common carotid arteries appear patent. The common carotid arteries demonstr ate normal caliber and courses. The bifurcation regions are both widely patent. The internal caroti d arteries demonstrate normal calibers and courses. Posterior circulation: The origins of the vertebral arteries both appear widely patent. The more orozco perior extracranial portions of both vertebral arteries also demonstrate normal courses and calibers. They join to form a normal appearing basilar artery. Soft tissues: Visualized neck soft tissues demonstrate no suspicious abnormalities. Mildly heteroge neous thyroid. Bones: No suspicious bony lesions. Visualized cervical spine appears normally aligned. IMPRESSION: Patent head and neck vasculature. No acute intracranial process. The estimate of stenosis included in the report of the imaging study was calculated using the NASCET method Reviewed by: Paco Veloz on 01/06/2023 11:28 AM PDT Approved by: Paco Veloz on 01/06/2023 11:28 AM PDT Station ID: [id number]
--- NOTE | 2023-01-06 16:39 | MRI Report ---
PROCEDURE: BRAIN WO INDICATIONS: diplopia and ataxia onset this morning TECHNIQUE: Noncontrast axial T1 spin echo, axial T2 fast spin echo, sagittal and axial FLAIR, coronal T2 fast sp in echo, axial gradient echo, axial diffusion and ADC through the brain. COMPARISON: None. FINDINGS: Image quality: Excellent. CSF Spaces: Basal cisterns are patent. No extra-axial fluid collections. Ventricles are normal in size and shape. Brain: No intracranial masses or hemorrhage. Rothman/white matter interface is normal. Brainstem appe ars normal. Diffusion-weighted images demonstrate no acute ischemic insult. No chronic ischemic ins ults. Normal intravascular flow voids are present. Leukoaraiosis, commonly caused by chronic small vessel ischemic disease. Age-related volume loss. Skull and face: Calvarium has normal marrow signal. Orbits appear normal. Sinuses: Sinuses and mastoids are clear. IMPRESSION: No acute abnormality. Chronic small vessel ischemic disease and mild age-related volume loss. Both are appropriate for age. Reviewed by: Paco Veloz on 01/06/2023 4:38 PM PDT Approved by: Paco Veloz on 01/06/2023 4:38 PM PDT Station ID: [id number]
[2023-01-06] MEDS ORDERED: dexAMETHasone 4 MG TABLET PO STA (17:03)
[2023-01-06 17:40] VITALS: BP 141/72
[2023-01-06] MEDS ORDERED: iohexoL-300 100 ML VIAL IVP ONE (19:37)
== END 2023-01-06 17:56 | disposition home or self-care (01) ==
LOC: EDUNIT# → ED 07:35 → SUPCPDRO 07:35 → ED 17:56
DX: H53.2 Diplopia (principal); R27.0 Ataxia, unspecified; J44.9 Chronic obstructive pulmonary disease, unspecified
CPT/HCPCS: 36415; 70496; 70498; 70551; 80053; 83690; 83735; 85025; 85651; 99284; J8540; Q9967

== ENCOUNTER 2023-03-14 08:00 | Outpatient (CLI) | payer MEDICARE ==
--- NOTE | 2023-03-14 15:06 | XRAY Report ---
PROCEDURE: Knee 2 View RT INDICATIONS: RIGHT PATELLA FRACTURE TECHNIQUE: 2 views of the right knee(s) were acquired. COMPARISON: Right knee radiographs 03/08/2023. FINDINGS: Bones: Comminuted patellar fracture appears unchanged. There is a 0.4 cm distraction. No dislocation s. No suspicious bony lesions. Soft tissues: Moderate knee joint effusion. No suspicious soft tissue calcifications or masses. IMPRESSION: Stable comminuted patella fracture. Similar distraction. Reviewed by: Angelo Holt MD on 03/14/2023 3:04 PM PDT Approved by: Angelo Holt MD on 03/14/2023 3:04 PM PDT Station ID: [id number]
== END 2023-03-14 23:59 | disposition home or self-care (01) ==
LOC: DI.WOS 08:00
PROVIDERS: ATTEND Orthopaedic Surgery
DX: S82.041D Displaced comminuted fracture of right patella, subsequent encounter for closed fracture with routine healing (principal)

== ENCOUNTER 2023-03-28 08:00 | Outpatient (CLI) | payer MEDICARE ==
--- NOTE | 2023-03-28 20:08 | XRAY Report ---
PROCEDURE: Knee 2 View RT INDICATIONS: RIGHT PATELLA FRACTURE TECHNIQUE: 2 views of the knee was obtained. COMPARISON: 03/14/2023 FINDINGS: Bones: Horizontal fracture through the mid patella shows remodeling of the fracture line and the ear ly bridging callus Soft tissues: Moderate knee joint effusion. No suspicious soft tissue calcifications or masses. IMPRESSION: Healing of patellar fracture with early bridging callus and persistent joint effusion Reviewed by: Osiel Chicas MD on 03/28/2023 7:07 PM ESTEVAN Approved by: Osiel Chicas MD on 03/28/2023 7:07 PM AKDT Station ID: [id number]
== END 2023-03-28 23:59 | disposition home or self-care (01) ==
LOC: DI.WOS 08:00
PROVIDERS: ATTEND Orthopaedic Surgery
DX: S82.044D Nondisplaced comminuted fracture of right patella, subsequent encounter for closed fracture with routine healing (principal); M25.461 Effusion, right knee

== ENCOUNTER 2023-04-27 11:15 | Outpatient (CLI) | payer MEDICARE ==
--- NOTE | 2023-04-27 22:08 | XRAY Report ---
PROCEDURE: Knee 2 View RT INDICATIONS: RIGHT PATELLA FRACTURE TECHNIQUE: 3 views of the knee was obtained. COMPARISON: 03/28/2023 FINDINGS: Bones: Transverse patellar fracture with slight distraction is again noted similar prior exam. Soft tissues: Moderate knee joint effusion. No suspicious soft tissue calcifications or masses. IMPRESSION: Transverse patellar fracture with slight distraction and moderate joint effusion, stable Reviewed by: Osiel Chicas MD on 04/27/2023 9:06 PM AKST Approved by: Osiel Chicas MD on 04/27/2023 9:06 PM AKST Station ID: [id number]
== END 2023-04-27 23:59 | disposition home or self-care (01) ==
LOC: DI.WOS 11:15
PROVIDERS: ATTEND Orthopaedic Surgery
DX: S82.031D Displaced transverse fracture of right patella, subsequent encounter for closed fracture with routine healing (principal); M25.461 Effusion, right knee

== ENCOUNTER 2023-06-19 08:00 | Outpatient (CLI) | payer MEDICARE ==
--- NOTE | 2023-06-19 15:26 | XRAY Report ---
PROCEDURE: Knee 2 View RT INDICATIONS: RIGHT PATELLA FRACTURE TECHNIQUE: 2 views of the knee were acquired. COMPARISON: Right knee radiographs 04/27/2023 and 03/28/2023. FINDINGS: Bones: Mild displaced transverse fracture of the patella is again seen with without significant hernandez e in alignment when compared to the prior exam. No definite osseous bridging is seen. Osseous structu res otherwise appear stable. Soft tissues: Small knee joint effusion. No suspicious soft tissue calcifications or masses. IMPRESSION: Transverse fracture of the patella again seen with unchanged alignment. Reviewed by: Chintan Astorga MD on 06/19/2023 3:24 PM PST Approved by: Chintan Astorga MD on 06/19/2023 3:24 PM PST Station ID: [id number]
== END 2023-06-19 23:59 | disposition home or self-care (01) ==
LOC: DI.WOS 08:00
PROVIDERS: ATTEND Orthopaedic Surgery
DX: S82.031D Displaced transverse fracture of right patella, subsequent encounter for closed fracture with routine healing (principal)